=== PATIENT | female | born 1960 | race Caucasian/White ===

== ENCOUNTER → 2016-10-24 | Outpatient (CLI) | payer BC ==
[~2016-10-24] MED LIST: ADVIN25050 INH; ALBU1AER9; CEPH500C PO; CRDCD120 PO; EFF50 PO; FURO80TA63 PO; HYDR-3785 PO; POTA-335 PO; PRED20TA PO; ROPI0.5T15 PO; SNG10 PO
--- NOTE | 2016-10-24 16:51 | DIAGNOSTIC IMAGING REPORT ---
SACRUM COCCYX MIN 2 VIEWS CLINICAL HISTORY: M54.40 back pain. COMPARISON STUDY: No previous studies for comparison. FINDINGS: Degenerative changes are present within the lower lumbar spine. There are degenerative changes within the SI joints. There is no evidence of SI joint fusion. There is no conventional radiographic evidence of an inflammatory sacroiliitis. No fractures are visualized. IMPRESSION: Moderate degenerative changes in the lower lumbar spine. No acute fractures identified. Electronically signed by: Donny Shields M.D. 10/24/2016 4:49 PM Dictated Date/Time: 10/24/2016 4:48 PM
--- NOTE | 2016-10-24 16:57 | DIAGNOSTIC IMAGING REPORT ---
L-SPINE MIN 4 VIEWS ROUTINE CLINICAL HISTORY: M54.40 back pain and sciatica COMPARISON STUDY: No previous studies for comparison. FINDINGS: No acute fractures or subluxations are visualized. There are moderately advanced degenerative changes the L5-S1 level with disc space narrowing and osteophyte formation. Moderate degenerative changes are also present within the lower thoracic spine. IMPRESSION: 1. No acute fractures 2. Advanced degenerative changes at the L5-S1 level. Electronically signed by: Donny Shields M.D. 10/24/2016 4:56 PM Dictated Date/Time: 10/24/2016 4:55 PM
== END | disposition home or self-care (01) ==
LOC: C.RAD 15:31
PROVIDERS: ATTEND Family Medicine
DX: M54.40 Lumbago with sciatica, unspecified side (principal)

== ENCOUNTER → 2017-05-03 | Outpatient (CLI) | payer BC ==
--- NOTE | 2017-05-04 05:58 | PAP/PSG TECHNICIAN REPORT ---
[facility] Aurist Polysomnogram Report Study name: None Report date: 05/04/2017 Study date: 05/03/2017 Referring Physician: Kristopher Khanna MD Name: ISMAEL MOODY Interpreting Physician: Collins Umanzor D.O. Date of : 1960 Aurist: Richie Cam RPS. Sex: Female Age: 56 StudyType: PSG PAP Weight: 457 lbs Height: 56 years, Height 5' 6" BMI: 73.75 Medications: PRO AIR HFA 108 90 BASE, ADVAIR DISKUS 250-50 MCG, ZOLPIDEM TARTRATE 10 MG, ROPINIROLE HCL 0.5 MG, DICLOFENAC SODIUM, DILTIAZEM HCL 120 MG, EFFEXOR XR 150 MG, ETODOLAC 400 MG, LASIX 80 MG, POTASSIUM CHLORIDE 20 MEQ, PROVENTIL HFA, ZANTAC 150 MG Patient History PATIENT HAS HISTORY OF SLEEP APNEA AND RESTLESS LEGS. SHE CURRENTLY WEARS CPAP AT [facility]CWP AND IS HERE OR AN UPDATE ON HER PRESSURE. ESS = 8 RM 7 Parameters Monitored NPSG: E1-M2, E2-M1, Fp1-M2, Fp2-M1, F3-M2, F4-M2, F4-M1, C3-M2, C4-M2, C4-M1, O1-M2, O2-M2, O2-M1, T3-M2, T4-M1, P3-M2, P4-M1, CHIN1, CHIN2, HR, EKG, Legs, PFLOW, SNOR, FLOW, CFLOW, Tidal Volume, THOR, ABDO, SpO2, PLTH, CPRESS, ETCO2 Wave, ETCO2, pH Sleep Architecture Sleep Stages Time at Lights Off 10:41:42 PM STAGES Time (min.) TST (%) Time at Lights On 5:26:42 AM Wake 70.0 -- Total Recording Time (TRT) 406.00 min. N1 22.0 7 Total Sleep Period (TSP) 380.5 min. N2 190.5 57 Total Sleep Time (TST) 335.0min. N3 46.0 14 Awake Time 70.0 min. REM 76.5 23 Wake after Sleep Onset 45.5 min. Sleep Efficiency (SE) 83 % Sleep Onset Latency (KIMBERLY) 24.5 min. Number of Stage 1 Shifts None Awakenings 21 Stage Changes 83 Number of REM periods 1 REM 76.5 23 REM Latency 144.5 min. NREM 258.5 77 Body Position Analysis Supine Right Left Side Prone Vertical Total Sleep Time (min.) 213.6 0.0 165.2 165.22 0.0 0.0 Total Sleep Time (%) 51% 0% 49% 49 0% N/A% Total Sleep Time REM (min.) 76.5 0.0 0.0 None 0.0 0.0 Total Sleep Time NREM (min.) 93.3 0.0 165.2 None 0.0 0.0 Intermittent Wake (min.) 43.8 0.0 26.2 None 0.0 0.0 Total Sleep Period (%) 50% None None None None None Arousals Myoclonus (PLM) * Events Count Index Events Count Index Spontaneous 48 9 Events Awake (PLMW) 52 44.6 Respiratory 5 0.9 Events Asleep w/ Arousal (PLMA) 9 1.6 PLM 9 2 Events Asleep w/o Arousal (PLMS) 63 11.3 Snoring 4 1 Total Asleep 72 12.9 Total 66 12 Total 124 18 Respiratory Analysis * CA OA MA CH H RERA Total Count 0 0 0 0 23 1 23 Index 0.0 0.0 0.0 0 4.1 0 4.3 Mean Duration 0.0 0.0 0.0 0.00 12.6 11.4 12.5 Longest Duration 0.0 0.0 0.0 0.00 0.0 11.4 18.4 Respiratory Event Summary Total Supine ~Supine Right Left Prone REM NREM Apneas Count 0 0 0 N/A 0 N/A 0 0 Index 0.0 0 0 N/A 0.0 N/A 0 0 Hypopneas (4% Desat) Count 23 18 5 N/A 5 N/A 11 12 Index 4.1 6.4 2 N/A 1.8 N/A 8.6 2.8 Apneas & All Hypopneas Count 23 18 5 N/A 5 N/A 11 12 Index 4.1 6 2 N/A 2 N/A 8.6 2.8 Respiratory Events (Employee Wellness/Fitness Coordinator+All Hyp+RERA) Count 23 19 5 N/A 5 N/A 11 12 Index 4.3 7 2 N/A 1.8 N/A 8.6 3.0 Respiratory Related Arousal Count 5 19 2 N/A 2 N/A 0 5 Index 0.9 1 1 N/A 1 N/A 0 1 Snoring Analysis Supine Right Left Prone REM NREM Total Snore duration 2.0 min Snores count 25 N/A 104 N/A 5 124 129 Snore mean duration 0.9 Sec Snores index 9 N/A 38 N/A 3.9 28.8 23.1 TST with snoring (%) 0.6% Desaturation Event Summary: Minimum %SpO2 Event Count Mean/Min/Max Duration(sec.) Desaturation Index % Time In Bed > 90 38 18.6 / 6.0 / 55.0 6.6 85.3 86 - 90 5 15.9 / 8.3 / 24.9 5.5 13.6 81 - 85 1 6.3 / 6.3 / 6.3 14.2 1.0 76 - 80 0 N/A 0.0 0.0 71 - 75 0 N/A 0.0 0.0 66 - 70 0 N/A 0.0 0.0 61 - 65 0 N/A 0.0 0.0 56 - 60 0 N/A 0.0 0.0 51 - 55 0 N/A 0.0 0.0 < 50 0 N/A 0.0 0.0 Total REM NREM Awake <50% 0.0 min. 0.0 min. 0.0 min. 0.0 min. 51 - 60% 0.0 min. 0.0 min. 0.0 min. 0.0 min. 61 - 70% 0.0 min. 0.0 min. 0.0 min. 0.0 min. 71 - 80% 0.0 min. 0.0 min. 0.0 min. 0.0 min. 81 - 90% 59.3 min. 18.6 min. 33.8 min. 6.9 min. 91 - 100% 345.1 min. 57.9 min. 224.7 min. 62.5 min. Average 92 91 92 93 Minimum SpO2 81 81 88 87 Desaturation Event Index 6.1 9.4 3.5 12.0 # Desat. Events below 89% 12 9 2 1 Time(%) with Saturation below 89% 2.3 2.1 0.1 0.1 Time(min.) with Saturation below 89% 9.2 8.4 0.3 0.5 Time (mins) REM (mins) NREM (mins) % of TST SpO2 Below 90% 24 12 N12 4.8 SpO2 Below 88% 3 0 0 2 Heart Rate Analysis Min (bpm) Max (bpm) Average (bpm) Awake 61 92 78 NREM 63 88 74 REM 60 84 68 Overall 60 88 73 Supplemental O2 Values Minimum O2 level: None Value Start Time End Time Aurist Comments Mrs. Moody slept in the letf and supine positions. PVC's noted. Leg movements noted. No bruxism noted. CPAP was initiated at +4 CMH2O and up-titrated to an optimal level of +13 CMH2O, which nearly eliminated all respiratory events and snoring. A Dyer and Payke; Eson 2 size small nasal mask was used during titration Mrs. Moody awoke to use the restroom 0 times during the night. Mrs. Moody stated I slept as well as I do when I am in my own bed. The final report will be interpreted and signed by a sleep physician. The completed physician report will then be placed in the patient medical record. Therapy Event: Therapy (cm H20) 4 7 8 9 10 12 13 Total Time at Pressure (min.) 1.2 56.4 46.7 36.5 34.9 18.9 210.4 TST at Pressure (min.) 0.0 25.6 41.2 35.0 28.9 18.9 185.4 # Periods 1 1 1 1 1 1 1 Sleep Onset (min.) N/A 23.3 0.0 0.0 0.0 0.0 0.0 REM Onset (min.) N/A N/A N/A N/A 28.2 0.0 0.0 Sleep Efficiency % 0 45 88 95 82 100 88 Wakefulness (%) 100.0 54.6 11.8 4.1 17.2 0.0 11.9 Wakefulness (min.) 1.2 30.8 5.5 1.5 6.0 0.0 25.0 NREM 1 (%) 0.0 11.5 2.1 0.0 5.7 0.0 5.9 NREM 1 (min.) 0.0 6.5 1.0 0.0 2.0 0.0 12.5 NREM 2 (%) 0.0 33.8 68.3 33.6 58.0 0.0 50.8 NREM 2 (min.) 0.0 19.1 31.9 12.3 20.2 0.0 107.0 NREM 3 (%) 0.0 0.0 17.7 62.3 0.0 0.0 7.1 NREM 3 (min.) 0.0 0.0 8.3 22.7 0.0 0.0 15.0 REM (%) 0.0 0.0 0.0 0.0 19.1 100.0 24.2 REM (min.) 0.0 0.0 0.0 0.0 6.6 18.9 50.9 # Arousals N/A 17 7 5 11 0 26 Arousal Index N/A 39.8 10.2 8.6 22.9 0.0 8.4 # Snore N/A 10 43 28 24 1 23 Snore Index N/A 23.4 62.6 48.0 49.9 3.2 7.4 AHI N/A 7.0 2.9 1.7 14.5 12.7 1.9 AHI Supine N/A 19.7 3.4 N/A 30.8 12.7 2.1 AHI Non-Supine N/A 3.1 2.6 1.7 0.0 N/A 1.7 NREM AHI N/A 7.0 2.9 1.7 2.7 N/A 2.2 REM AHI N/A N/A N/A N/A 54.2 12.7 1.2 RDI N/A 9.4 2.9 1.7 14.5 12.7 1.9 # Obstructive N/A 0 0 0 0 0 0 # Central Ap N/A 0 0 0 0 0 0 # Mixed N/A 0 0 0 0 0 0 # Hypopneas N/A 3 2 1 7 4 6 RERAS N/A 1 0 0 0 0 0 Total Respiratory Events N/A 4 2 1 7 4 6 Time Below SpO2 89.00% (min.) 0.0 0.0 0.1 0.1 4.5 3.8 0.2 Mean NREM SpO2 (%) N/A 92 91 91 91 N/A 93 Mean REM SpO2 (%) N/A N/A N/A N/A 87 90 92 Mean Sleep SpO2 (%) N/A 92 91 91 90 90 93 Min NREM SpO2 (%) N/A 89 88 88 89 N/A 88 Min REM SpO2 (%) N/A N/A N/A N/A 81 82 88 Position Supine (min.) 0.0 6.1 17.9 0.0 13.6 18.9 113.2 Position Non-supine (min.) 0.0 19.5 23.3 35.0 15.2 0.0 72.2 LM Index Sleep N/A 18.8 20.4 3.4 14.5 0.0 13.3 LM Index NREM N/A 18.8 20.4 3.4 18.9 N/A 18.3 LM Index REM N/A N/A N/A N/A 0.0 0.0 0.0 Mean Heart Rate (bpm) N/A 76 76 79 77 71 70 Min Heart Rate (bpm) N/A 71 69 71 68 63 60
--- NOTE | 2017-05-10 13:13 | Sleep Study ---
Sleep Study Report Date of Service: 05/03/2017 Sleep Study Report CLINICAL DATA: The patient is a 56-year-old female with a history of obstructive sleep apnea. She has been on CPAP for many years at 9 centimeters. The patient believes that she may need more pressure. She has been feeling like she is not getting enough air and is being suffocated. She has had a significant weight gain. Her BMI currently is 73.75. This was an in-lab CPAP retitration. Her Advance Sleepiness Scale score is 8. She also carries a history of restless leg syndrome and she is on ropinirole. SLEEP ARCHITECTURE: The sleep period time was 380.5 minutes. The total sleep time was 335 minutes. The sleep efficiency was mildly reduced at 83 percent. Sleep latency was 24.5 minutes. Wake after sleep onset was 45.5 minutes. The REM latency was prolonged to 144.5 minutes. There was only 1 REM. During the night. Sleep consisted of stage N1 7 percent, stage N2 57 percent, stage N3 14 percent, stage REM 23 percent. AROUSAL DATA: Patient had a total of 66 arousals including 48 spontaneous arousals, 5 respiratory arousals, 9 PLM arousals, and 4 snoring arousals. The arousal index was 12. PLM DATA: The patient had 72 periodic limb movements of sleep for a PLM index of 12.9. There were 9 arousals associated with limb movements for a PLM arousal index of 1.6. EKG: The underlying cardiac rhythm was normal sinus. The cardiac rates 60-88 beats per minute. There were a mild number of PVCs noted. RESPIRATORY DATA: The patient's respiratory events were treated with nasal CPAP. She had a total of 23 respiratory events, all hypopneas. Hypopneas were scored according to the 4 percent desaturation rule. There was also 1 RERAs. The mean duration of the hypopneas was 12.6 seconds. The apnea-hypopnea index was 4.1 events per hour. At the final pressure of 13 centimeters the apnea-hypopnea index was only 1.9 events per hour. She was at that pressure for a total of 210.4 minutes. OXIMETRY DATA: The average saturation for the night was 92 percent. The minimum saturation was 81 percent. There was a total of 9.2 minutes with saturations less than 89 percent. SPECIAL AGENT SECRET SERVICE COMMENTS: The patient slept on the left and supine positions. PVCs noted. Leg movements noted. No bruxism noted. CPAP was initiated at 4 centimeters and up titrated to an optimal level of 13 centimeters which nearly eliminated all respiratory events and snoring. A Dyer and Paykel Eson 2 size small nasal mask was utilized. IMPRESSIONS: 1. Obstructive sleep apnea-resolved with nasal CPAP at 13 centimeters 2. Restless legs syndrome by history COMMENTS: Patient did well with her CPAP titration. This was especially true in the 2nd half of the night when her pressures were near the optimum. In the post sleep questionnaire she admitted that she slept better as the night went on. Her sleep efficiency was mildly reduced. She only had 1 REM episode. She does take venlafaxine which can suppress REM sleep. She does take ropinirole which was presumably utilized on the night of this study. She has a history of taking zolpidem. It is unknown with certainty if she took that medicine on the night of the study. RECOMMENDATIONS: 1. It is suggested that her nasal CPAP be adjusted upward to 13 centimeters 2. She did well during this study wearing a Dyer and Paykel Eson 2 size small nasal mask. This could be ordered for her if desired. 3. Weight loss is advised in light of the severe elevation of body mass index at 73.75. Copies To 1: Toni Gonzalez M.D.; Collins Umanzor DO; Kristopher Khanna MD
== END | disposition home or self-care (01) ==
LOC: C.NEUR 20:00
PROVIDERS: ATTEND Internal Medicine Critical Care Medicine
DX: G47.33 Obstructive sleep apnea (adult) (pediatric) (principal); R06.02 Shortness of breath

== ENCOUNTER 2017-11-01 18:26 | Emergency (ER) | payer BC ==
[~2017-11-01 18:26] MED LIST changes: -CEPH500C PO; -CRDCD120 PO; +DICL50TA3 PO; +DILT360C17 PO; -EFF50 PO; +ETOD400T PO; +FRS/40 PO; -FURO80TA63 PO; -HYDR-3785 PO; -PRED20TA PO; +RANI300T2 PO; -SNG10 PO; +VENL150C2 PO; +VENL75CA88 PO; +ZOLP10TA PO
[2017-11-01 18:30] VITALS: TEMP 36.6; Ht 167.6 cm
[2017-11-01] MEDS ORDERED: ACETAMINOPHEN 500 MG TAB PO STA (18:44)
[2017-11-01] MEDS ORDERED: KETOROLAC TROMETHAMINE 30 MG/ML VIAL IV STA (18:44)
--- NOTE | 2017-11-01 18:49 | EMERGENCY ROOM VISIT NOTE ---
History Report prepared by Mary: Ronel Huber Under the Supervision of: Dr. Rubén Hatch M.D. 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 Negative nausea, vomiting. She states she went to the doctor about 1 month ago and they recommended she have an ultrasound done as there was a concern for blood clots. She then began being treated for cellulitis and after the 1st round of 10 day antibiotics, she felt a little better. 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 She states she stopped taking it because her pain is now constant and she can no longer walk. She describes her pain as if the "backs of her knees are torn." Pt reports that nothing modifies her pain. 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 A total of ten systems were reviewed and were otherwise negative. Past Medical & Surgical Medical Problems: (1) Anxiety (2) Asthma (3) Bilateral primary osteoarthritis of knee (4) Depression (5) Hypertension (6) Obesity (7) ORIF left forearm (8) Restless leg syndrome (9) Sleep apnea Surgical Problems: (1) History of adenoidectomy (2) Hx of tonsillectomy (3) Previous section Family History Cancer FH: diabetes mellitus Heart disease High blood pressure Social History Smoking Status: Never Smoker Alcohol Use: none Marital Status: Housing Status: lives with family Occupation Status: disabled Current/Historical Medications Scheduled Diltiazem Hcl Coated Beads (Cardizem Cd), 360 MG PO DAILY Fluticasone Prop/Salmeterol (Advair Diskus 250/50 60 Dose), 1 PUFF INH BID Furosemide (Lasix), 40 MG PO HOLD Potassium Chloride Microencaps (Potassium Chloride Er), 20 MEQ PO HOLD Ranitidine (Zantac), 300 MG PO BID Ropinirole (Requip), 0.5 MG PO HS Venlafaxine Hcl (Effexor Xr), 75 MG PO DAILY Venlafaxine Hcl (Effexor Xr), 300 MG PO DAILY Scheduled PRN Acetaminophen (Tylenol), 1,500 MG PO UD PRN for Pain Albuterol Sulfate (Proair Respiclick), 2 PUFFS INH UD PRN for SOB/Wheezing Diclofenac (Voltaren), 50 MG PO QID PRN for Pain Etodolac (Etodolac), 400 MG PO TID PRN for Pain Oxycodone Immediate Rel Tab (Roxicodone Ir), 5 MG PO Q6H PRN for Pain Allergies Coded Allergies: No Known Allergies (Verified , 12/27/11) Physical Exam Vital Signs Date Time Temp Pulse Resp B/P (MAP) Pulse Ox O2 Delivery O2 Flow Rate FiO2 11/01/17 18:30 36.6 85 20 176/78 97 Room Air Physical Exam GENERAL: Awake, alert, well-appearing, NAD. Morbidly obese. HENT: Normocephalic, atraumatic. EYES: Normal conjunctiva. Sclera non-icteric. PERRL. No anisocoria. NECK: Supple. No nuchal rigidity. FROM. RESPIRATORY: CTAB, no rhonchi, wheezing, crackles CARDIAC: RRR. Systolic ejection murmur. ABDOMEN: Soft, NTND, BS+ MSK: No chest wall TTP. Nonpitting LE edema. No evidence of any skin breakdown. Scant erythema but no calor. No fluctuance or purulence. DP pulses palpable NEURO: GCS 15, CN 2-12 intact, moves all 4s on command SKIN: No rash or jaundice noted. Medical Decision & Procedures Laboratory Results 11/01/17 19:14 Red Blood Count 4.22, Mean Corpuscular Volume 92.7, Mean Corpuscular Hemoglobin 29.6, Mean Corpuscular Hemoglobin Concent 32.0, Mean Platelet Volume 9.7, Neutrophils (%) (Auto) 77.2, Lymphocytes (%) (Auto) 15.3, Monocytes (%) (Auto) 6.0, Eosinophils (%) (Auto) 1.1, Basophils (%) (Auto) 0.2, Neutrophils # (Auto) 7.34, Lymphocytes # (Auto) 1.45, Monocytes # (Auto) 0.57, Eosinophils # (Auto) 0.10, Basophils # (Auto) 0.02 11/01/17 19:14 Test 11/01/17 19:14 White Blood Count 9.50 K/uL (4.8-10.8) Red Blood Count 4.22 M/uL (4.2-5.4) Hemoglobin 12.5 g/dL (12.0-16.0) Hematocrit 39.1 % (37-47) Mean Corpuscular Volume 92.7 fL (80-100) Mean Corpuscular Hemoglobin 29.6 pg (25-34) Mean Corpuscular Hemoglobin Concent 32.0 g/dl (32-36) Platelet Count 246 K/uL (130-400) Mean Platelet Volume 9.7 fL (7.4-10.4) Neutrophils (%) (Auto) 77.2 % Lymphocytes (%) (Auto) 15.3 % Monocytes (%) (Auto) 6.0 % Eosinophils (%) (Auto) 1.1 % Basophils (%) (Auto) 0.2 % Neutrophils # (Auto) 7.34 K/uL (1.4-6.5) Lymphocytes # (Auto) 1.45 K/uL (1.2-3.4) Monocytes # (Auto) 0.57 K/uL (0.11-0.59) Eosinophils # (Auto) 0.10 K/uL (0-0.5) Basophils # (Auto) 0.02 K/uL (0-0.2) RDW Standard Deviation 51.2 fL (36.4-46.3) RDW Coefficient of Variation 15.1 % (11.5-14.5) Immature Granulocyte % (Auto) 0.2 % Immature Granulocyte # (Auto) 0.02 K/uL (0.00-0.02) Anion Gap 9.0 mmol/L (3-11) Estimated GFR () 73.7 Estimated GFR (Non- 63.6 BUN/Creatinine Ratio 13.0 (10-20) Calcium Level 8.6 mg/dl (8.5-10.1) Total Bilirubin 0.4 mg/dl (0.2-1) Direct Bilirubin < 0.1 mg/dl (0-0.2) Aspartate Amino Transf (AST/SGOT) 12 U/L (15-37) Alanine Aminotransferase (ALT/SGPT) 21 U/L (12-78) Alkaline Phosphatase 114 U/L (45-117) Pro-B-Type Natriuretic Peptide 202 pg/ml (0-900) Total Protein 7.5 gm/dl (6.4-8.2) Albumin 3.3 gm/dl (3.4-5.0) Lipase 92 U/L (73-393) Laboratory results reviewed by me Medications Administered Medications (Trade) Dose Ordered Sig/Estelle Route Start Time Stop Time Status Last Admin Dose Admin Ketorolac Tromethamine (Toradol Inj) 30 mg NOW STAT IV 11/01/17 18:44 11/01/17 18:46 DC 11/01/17 19:22 30 MG Acetaminophen (Tylenol Tab) 1,000 mg NOW STAT PO 11/01/17 18:44 11/01/17 18:46 DC 11/01/17 19:22 1,000 MG ED Course 1837: The patient was evaluated in room B5. A complete history and physical exam was performed. 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 Negative nausea, vomiting. Nursing notes reviewed. Ancillary studies and prior records reviewed. Differential diagnosis: Etiologies such as cellulitis, abscess, MRSA infection, DVT, necrotizing fasciitis, dermatitis, drug eruption, as well as others were entertained.. Patient was seen and evaluated the bedside. The patient was complaining of bilateral leg pain. The patient has been seen by her primary care physician several times been treated for cellulitis and did have bilateral lower extremity DVT ultrasound which of note the patient is morbidly obese and the patient does have some lymphedema. The patient states that she has been tried on Tylenol threes as well as baclofen without much relief. Upon observation the patient does have mild erythema but this may just be due to the stretching of the skin. It is fairly nonpitting. The patient is not tachypneic nor tachycardic. Patient has clear lung sounds. I believe volume overload or heart failure to be less likely. Given the recent DVT ultrasounds and without any acute changes DVT ultrasounds cannot be obtained again. The patient has no change in temperature with regard to each extremity and the patient appears to be perfusing the bilateral lower extremities well. I do not believe that the patient has limb ischemia. Patient did have blood work completed. The patient's BNP is not elevated. The patient has a normal white blood cell count. Somewhat may be muddied as the patient has been on antibiotics in the past however again the appearance does not appear cellulitic and laxity warmth. I do believe that this is lymphedema. I did make a referral to the wound care and lymphedema clinic. Patient was feeling improved. Patient does not have any back pain saddle anesthesia or neuro deficits. Less likely cauda equina. Patient was told to continue her therapy. Patient was given a very small amount of narcotic medication. I did this only as the patient stated that tramadol she is tried in the past and is not worked very well for pain control. I did have a prolonged discussion about narcotic medication stated this may be habit-forming cause respiratory depression as well as other problems including respiratory arrest and/or addiction. She was told to follow-up with pain management who she already sees. Of note the patient to see pain management patient was told to follow-up with pain management. Patient was given strict follow-up, discharge, and return precautions. All questions were answered. Patient was deemed suitable for outpatient follow-up at this time. Patient agreed with the plan of care and was safely discharged home. Medication Reconcilliation Current Medication List: was personally reviewed by me Blood Pressure Screening Patient's blood pressure: Elevated blood pressure Blood pressure disposition: Referred to PCP Impression Primary Impression: Bilateral leg pain Additional Impression: Lymphedema of both lower extremities Scribe Attestation The scribe's documentation has been prepared under my direction and personally reviewed by me in its entirety. I confirm that the note above accurately reflects all work, treatment, procedures, and medical decision making performed by me. Departure Information Dispostion Home / Self-Care Prescriptions Oxycodone Immediate Rel Tab (ROXICODONE IR) 5 Mg Tab 5 MG PO Q6H Y for Pain, #12 TAB Prov: Rubén Hatch M.D. 11/01/17 Referrals Toni Gonzalez M.D. (PCP) Patient Instructions ED Lymphedema, [facility] Additional Instructions Please return to the emergency department if you have worsening or recurrent symptoms not amenable to at-home treatment. Please call for a follow-up appointment with her primary care physician. Please take your medications as prescribed. If you have other concerns and/or complaints please feel free to also call your primary care physician's office or return the ED for further evaluation, management, and treatment. You may take 600 mg Ibuprofen every 6 hours as needed for pain/fever with food unless told by your physician not to take NSAIDs. You may take tylenol 650 mg every 6 hours as needed for pain/fever unless told by your physician to not take it or have liver problems. You may take motrin and tylenol separately or at the same time. If you still have discomfort you may take the narcotic medication. Please be advised that these medications are habit forming, can make you sleepy, and can cause breathing issues. Do not use if you require your full attention. Take only as prescribed. Take your medications as prescribed. Please follow-up with pain management and your PCP for any worsening symptoms. Please keep the referral for the lymphedema clinic. You have been examined and treated today on an emergency basis only. This is not a substitute for, or an effort to provide, complete comprehensive medical care. It is impossible to recognize and treat all injuries or illnesses in a single emergency department visit. It is therefore important that you follow up closely with [facility], your PCP, and/or your specialist(s). Call as soon as possible for an appointment. Thank you for your time and consideration. I look forward to speaking with you again soon. Please don't hesitate to call us if you have any questions. Problem Qualifiers
[2017-11-01] MEDS ORDERED: ADVIN25/60 INH (19:06)
[2017-11-01] MEDS ORDERED: POTA20TA13 PO (19:06)
[2017-11-01] MEDS ORDERED: ALBU18002 INH (19:06)
[2017-11-01] MEDS ORDERED: ACET-1256 PO (19:09)
[2017-11-01 19:23] LABS: BASO % 0.2 %; BASO ABS # 0.02 K/uL (0-0.2); EOS % 1.1 %; HEMATOCRIT 39.1 % (37-47); HEMOGLOBIN 12.5 g/dL (12.0-16.0); IG# 0.02 K/uL (0.00-0.02); LYMPH % 15.3 %; LYMPH ABS # 1.45 K/uL (1.2-3.4); MEAN CELL VOLUME 92.7 fL (80-100); MEAN CORPUSCULAR HEMOGLOBIN 29.6 pg (25-34); MEAN PLATELET VOLUME 9.7 fL (7.4-10.4); MONO ABS # 0.57 K/uL (0.11-0.59); NEUT % 77.2 %; NEUT ABS # 7.34 K/uL (1.4-6.5); PLATELET COUNT 246 K/uL (130-400); RED CELL DISTRIBUTION WIDTH CV 15.1 % (11.5-14.5); RED CELL DISTRIBUTION WIDTH SD 51.2 fL (36.4-46.3)
[2017-11-01 19:48] LABS: ALBUMIN 3.3 gm/dl (3.4-5.0); ALKALINE PHOSPHATASE 114 U/L (45-117); ALT/SGPT 21 U/L (12-78); AST/SGOT 12 U/L (15-37); BLOOD UREA NITROGEN 13 mg/dl (7-18); CALCIUM 8.6 mg/dl (8.5-10.1); CARBON DIOXIDE 24 mmol/L (21-32); CREATININE 0.98 mg/dl (0.60-1.20); GLUCOSE 121 mg/dl (70-99); LIPASE 92 U/L (73-393); POTASSIUM 3.6 mmol/L (3.5-5.1); SODIUM 139 mmol/L (136-145); TOTAL PROTEIN 7.5 gm/dl (6.4-8.2)
[2017-11-01] MEDS ORDERED: OXYC-737 PO (20:08)
[2017-11-01 21:12] VITALS: BP 186/88; PULSE 74; O2SAT 99
== END 2017-11-01 21:14 | disposition home or self-care (01) ==
LOC: C.EDB 18:27
DX: M79.661 Pain in right lower leg (principal); M79.662 Pain in left lower leg; I89.0 Lymphedema, not elsewhere classified; I10 Essential (primary) hypertension; J45.909 Unspecified asthma, uncomplicated; F41.9 Anxiety disorder, unspecified; F32.9 Major depressive disorder, single episode, unspecified; Z79.899 Other long term (current) drug therapy; Z79.51 Long term (current) use of inhaled steroids

== ENCOUNTER → 2017-11-12 | Outpatient (CLI) | payer BC ==
[~2017-11-12] MED LIST changes: +ACET-1256 PO; +ADVIN25/60 INH; -ADVIN25050 INH; +ALBU18002 INH; -ALBU1AER9; +OXYC-737 PO; -POTA-335 PO; +POTA20TA13 PO; -ZOLP10TA PO
== END | disposition home or self-care (01) ==
LOC: C.RDSM 11:36
PROVIDERS: ATTEND Orthopaedic Surgery Sports Medicine
DX: M25.562 Pain in left knee (principal); M25.561 Pain in right knee

== ENCOUNTER 2021-07-24 09:36 | Observation (INO) ==
[2021-07-24] MEDS ORDERED: MoRPHine SULFATE 4 MG/ML 1 ML CARP\\VIAL IV STA (09:57)
--- NOTE | 2021-07-24 10:04 | Emergency Department Note ---
Impression & Plan Tibial fracture, Contusion of left forearm, Fall ED Provider Note Provider: Bobby Bell MD DATE OF SERVICE: 07/24/2021 CHIEF COMPLAINT: Right leg pain, fall HISTORY OF PRESENT ILLNESS: Patient is a 61-year-old female past medical history including osteoarthritis, hypertension, obesity, and asthma presenting here today via ambulance from her home. Patient states over the past 2 to 3 days she has developed pain in her right lower leg. Pain predominantly between the knee and the ankle and the right side sometimes on the right of the leg and sometimes on the left of this right leg. Denies any left lower extremity issues. Patient states that been painful to even try to walk on but denies significant pain of the thigh or right hip. Patient states she has been using her home diclofenac without improvement. Discussed with her PCP yesterday recommended she come to the ER for evaluation of possible DVT. Patient states she could not walk to her 's car and thus did not come yesterday. Today was at home and a rolling computer chair when she was trying to stand a little bit to roll the chair over a transition on the floor when she fell onto her buttocks and back and bumped her left arm on the walker. Some slight bruising of the left arm but denies severe pain in the wrist or hand otherwise here. Denies striking her head or headache. Denies significant difficulty breathing or URI symptoms but states she may have had a fever yesterday. History of some cellulitis in the left leg previously but no history of infection of the right leg. Patient denies a history of surgery in the right leg. REVIEW OF SYSTEMS: A total of 10 review of systems was obtained and negative except as stated above in the HPI. PAST MEDICAL HISTORY: As noted above MEDICATIONS: Reviewed home medications SOCIAL HISTORY: Lives at home with PHYSICAL EXAM: GENERAL: alert and oriented in no acute distress on stretcher Head: normocephalic and atraumatic EYES: No injection, discharge or icterus. NECK: Trachea midline. ENT: Mucous membranes pink and moist. LUNGS: Airway patent. No retractions. Breath sounds present bilaterally but slightly distant HEART: Regular rate and rhythm. No chest wall tenderness ABDOMEN: Soft, obese, and non-tender, without guarding or rebound. SKIN: Acyanotic, warm, dry and otherwise as below EXTREMITIES: Patient was chronic dry scaly flaking venous changes to the bilateral lower legs with mild swelling of the right lower leg and slight erythema just distal to the knee. No obvious acute deformities. No open wounds appreciated. No significant tenderness or crepitus appreciated with exception to the right posterior calf with has some tenderness diffusely. NEUROLOGICAL: No focal deficits. No aphasia. No facial droop or slurred speech. Normal strength and tone in the extremities. Sensation to gross touch normal. Ambulatory. EK bpm normal sinus rhythm. No PVC or PAC. No acute ST segment elevation or depression with a QTC of 421. PROCEDURE: splint placement Indications for procedure: Right proximal tibial fracture Description of the procedure: Long posterior orthoglass splint was placed on the patient's right lower extremity as best as able given the patient's habitus. Neurovascular status was intact after placement of the splint. PATIENT CONDITION AFTER PROCEDURE: Patient tolerated the procedure without significant discomfort or complication noted PDMP was checked without noted issue. Patient's laboratory studies and imaging reviewed. Differential includes Cellulitis, abscess, MRSA infection, DVT, necrotizing fasciitis, dermatitis, drug eruption, allergic reaction, PAD, trauma, fracture, dislocation, viral syndrome, as well as other pathologies. IMPRESSION/MEDICAL DECISION MAKING: Patient with some right lower leg pain precipitating a fall today. Slight bruise on the distal left forearm but not involving the wrist although x-rays were obtained in this area. She denies strike her head is not on anticoagulants. Ultrasound of the right lower extremities was obtained to exclude DVT. Question some swelling here and possible cellulitis. No large open wounds appreciated. No significant leukocytosis noted. X-ray of the left upper arm without acute fracture or dislocation noted. X-rays of the chest without acute trauma although may be some slight pulmonary edema. X-ray of the right lower leg does show evidence of a proximal tibial fracture. Patient is again unclear that she suffered any trauma of the fall today and the pain was not significantly different after the fall. Given her weight wonder if this is related to this. Ultrasound without evidence of DVT. Lower suspicion for infection given the fracture finding. Put in a posterior splint as able given habitus for immobilization. Patient is not felt to be able to tolerate crutches and fell while try to utilize a walker today and I do not feel she is able to go home at this time. Asked the hospitalist to evaluate as she may need possible placement. DIAGNOSIS: Right tibia fracture DISPOSITION: Hospitalist will evaluate Patient was agreeable with this plan. Past Med/Surg History Medical History Asthma Cough History of basal cell carcinoma History of dysplastic nevus Morbid obesity Obstructive sleep apnea Restless leg syndrome Sleep apnea SOB (shortness of breath) Surgical History H/O tubal ligation History of adenoidectomy Hx of tonsillectomy Hx of tonsillectomy Previous section S/P section S/P dilation and curettage S/P wisdom tooth extraction Family History Denies family history of Ovarian cancer Breast cancer Colorectal cancer Uterine cancer Social History Smoking Status: Never smoker Hx Alcohol Use: No Hx Substance Use: No Feels Safe at Home: Yes Allergies Allergies Allergy/AdvReac Type Severity Reaction Status Date / Time No Known Allergies Allergy Unknown Verified 04/12/19 15:26 Home Meds Home Medications Medication Instructions Recorded Confirmed albuterol sulfate 90 mcg/actuation 2 puffs INH Q6H PRN 11/23/18 07/24/21 aerosol inhaler (ProAir HFA) duloxetine 60 mg capsule,delayed 60 mg PO DAILY 11/23/18 07/24/21 release (Cymbalta) diltiazem HCl 120 mg 360 mg PO DAILY cap 12/06/18 07/24/21 capsule,extended release 12 hr lisinopril 10 mg tablet 10 mg PO DAILY 03/10/19 07/24/21 diclofenac sodium 75 mg 75 mg PO TID PRN 07/24/21 07/24/21 tablet,delayed release omeprazole 20 mg capsule,delayed 20 mg PO BID 07/24/21 07/24/21 release oxybutynin chloride 10 mg 10 mg PO DAILY 07/24/21 07/24/21 tablet,extended release 24 hr ropinirole 0.5 mg tablet 1 mg PO HS 07/24/21 07/24/21 Previous Rx's Medication Instructions Recorded CPAP Supplies #1 ea 04/12/19 fluticasone 250 mcg-salmeterol 50 1 puffs INH Q12H #60 ea 04/12/19 mcg/dose blistr powdr for inhalation (Wixela Inhub) montelukast 10 mg tablet 10 mg PO QPM #30 tab 08/31/19 (Singulair) Results & Data (ED) Vital Signs Vital Signs - 24 hr 07/24/21 09:50 07/24/21 10:13 07/24/21 11:49 Temperature 36.7 C Temperature Source Oral Pulse Rate 80 Pulse Rate [Apical] 87 Pulse Rhythm [Apical] Respiratory Rate 18 18 Respiratory Effort / Characteristics Respiratory Depth Blood Pressure 206/71 H Blood Pressure [Left Arm] 194/85 H Blood Pressure Mean 116 Blood Pressure Mean [Left Arm] 121 Pulse Oximetry 97 96 96 Oxygen Delivery Method Room Air Room Air Room Air Sepsis Recent Fever Within 48 Hours No Sepsis New/Unexplained Change in Mental Status No Sepsis Action Taken by Nursing No Action Required 07/24/21 13:00 07/24/21 15:00 Temperature Temperature Source Pulse Rate Pulse Rate [Apical] 80 73 Pulse Rhythm [Apical] Regular Respiratory Rate 16 16 Respiratory Effort / Characteristics Non-Labored Spontaneous Respiratory Depth Normal Blood Pressure Blood Pressure [Left Arm] 194/85 H 186/65 H Blood Pressure Mean Blood Pressure Mean [Left Arm] 121 105 Pulse Oximetry 99 96 Oxygen Delivery Method Room Air Room Air Sepsis Recent Fever Within 48 Hours Sepsis New/Unexplained Change in Mental Status Sepsis Action Taken by Nursing Laboratory Data Result diagrams: 07/24/21 10:25 07/24/21 10:25 Lab Results 07/24/21 07/24/21 07/24/21 Range/Units 10:25 10:25 10:25 WBC 7.62 (4.8-10.8) K/uL RBC 3.97 L (4.2-5.4) M/uL Hgb 11.0 L (12.0-16.0) g/dL Hct 35.4 L (37-47) % MCV 89.2 (80-100) fL MCH 27.7 (25-34) pg MCHC 31.1 L (32-36) g/dL RDW Std Deviation 48.2 H (36.4-46.3) fL RDW Coeff of Aleida 14.7 H (11.5-14.5) % Plt Count 195 (130-400) K/uL MPV 9.7 (7.4-10.4) fL Immature Gran % (Auto) 0.4 % Neut % (Auto) 78.6 % Lymph % (Auto) 10.2 % [place] % (Auto) 7.9 % Eos % (Auto) 2.5 % Baso % (Auto) 0.4 % Neut # (Auto) 5.99 (1.4-6.5) K/uL Lymph # (Auto) 0.78 L (1.2-3.4) K/uL [place] # (Auto) 0.60 H (0.11-0.59) K/uL Eos # (Auto) 0.19 (0-0.5) K/uL Baso # (Auto) 0.03 (0-0.2) K/uL Immature Gran # (Auto) 0.03 H (0.00-0.02) K/uL PT 10.7 (9.0-12.0) Seconds INR 1.0 (0.9-1.1) Sodium 140 (136-145) mmol/L Potassium 4.8 (3.5-5.1) mmol/L Chloride 106 (98-107) mmol/L Carbon Dioxide 26 (21-32) mmol/L Anion Gap 8 (3-11) BUN 17 (6-23) mg/dl Creatinine 1.12 (0.6-1.2) mg/dl Est Cr Clr Drug Dosing 98.0 ml/min Est GFR ( Amer) 61.0 ml/min Est GFR (Non-Af Amer) 52.6 ml/min BUN/Creatinine Ratio 15.2 (10-20) Glucose 114 H (70-99(Fasting)) mg/dl Calcium 9.3 (8.5-10.1) mg/dl Total Bilirubin 1.0 (0.2-1.0) mg/dl AST 13 (13-39) U/L ALT 11 (7-52) U/L Alkaline Phosphatase 109 H (34-104) U/L Troponin I High Sens 12.4 (0-14) pg/ml Total Protein 7.1 (6.0-8.3) gm/dl Albumin 3.9 (3.4-5.0) gm/dl Globulin 3.2 (2.5-4.0) gm/dl Albumin/Globulin Ratio 1.2 (0.9-2) SARS-CoV-2, RNA, NAAT (NEGATIVE) 07/24/21 Range/Units 12:49 WBC (4.8-10.8) K/uL RBC (4.2-5.4) M/uL Hgb (12.0-16.0) g/dL Hct (37-47) % MCV (80-100) fL MCH (25-34) pg MCHC (32-36) g/dL RDW Std Deviation (36.4-46.3) fL RDW Coeff of Aleida (11.5-14.5) % Plt Count (130-400) K/uL MPV (7.4-10.4) fL Immature Gran % (Auto) % Neut % (Auto) % Lymph % (Auto) % Wood[place] % (Auto) % Eos % (Auto) % Baso % (Auto) % Neut # (Auto) (1.4-6.5) K/uL Lymph # (Auto) (1.2-3.4) K/uL Woodford # (Auto) (0.11-0.59) K/uL Eos # (Auto) (0-0.5) K/uL Baso # (Auto) (0-0.2) K/uL Immature Gran # (Auto) (0.00-0.02) K/uL PT (9.0-12.0) Seconds INR (0.9-1.1) Sodium (136-145) mmol/L Potassium (3.5-5.1) mmol/L Chloride (98-107) mmol/L Carbon Dioxide (21-32) mmol/L Anion Gap (3-11) BUN (6-23) mg/dl Creatinine (0.6-1.2) mg/dl Est Cr Clr Drug Dosing ml/min Est GFR ( Amer) ml/min Est GFR (Non-Af Amer) ml/min BUN/Creatinine Ratio (10-20) Glucose (70-99(Fasting)) mg/dl Calcium (8.5-10.1) mg/dl Total Bilirubin (0.2-1.0) mg/dl AST (13-39) U/L ALT (7-52) U/L Alkaline Phosphatase (34-104) U/L Troponin I High Sens (0-14) pg/ml Total Protein (6.0-8.3) gm/dl Albumin (3.4-5.0) gm/dl Globulin (2.5-4.0) gm/dl Albumin/Globulin Ratio (0.9-2) SARS-CoV-2, RNA, NAAT NEGATIVE (NEGATIVE) Administered Medications Discontinued Medications Diltiazem HCl (Diltiazem Hcl 180 Mg Capcr) 360 mg PO NOW STA Stop: 07/24/21 13:24 Last Admin: 07/24/21 13:57 Dose: 360 mg Documented by: [id number] Morphine Sulfate (Morphine Sulfate 4 Mg/Ml 1 Ml Carp\Vial) 4 mg IV NOW STA Stop: 07/24/21 09:58 Last Admin: 07/24/21 10:28 Dose: 4 mg Documented by: [id number] Imaging Data Radiologist's Impression: Chest X-Ray 07/24/21 09:56 XR chest 1V portable HISTORY: fall COMPARISON: Chest 09/13/2018. FINDINGS: The cardiac silhouette is moderately enlarged. This is progressed in the interval. No pneumothorax. No pleural effusions. There is mild central pulmonary vascular congestion without overt edema. No focal lung consolidations to suggest pneumonia. No acute rib fractures identified. IMPRESSION: 1. Moderate enlargement of cardiac silhouette which has progressed in the interval. 2. There is mild central pulmonary vascular congestion without overt edema. ACT 112: Negative or not required by law. Electronically signed by: James Silva M.D. 07/24/2021 10:23 AM Forearm X-Ray 07/24/21 09:56 XR forearm LT 2V CLINICAL HISTORY: fall, distal swelling COMPARISON: None FINDINGS: Distal left radial plate and screw fixation is noted. There is a healed distal left radial fracture. No acute fracture of the left radius or ulna is identified. Note is made of a alignment of the left elbow is anatomic. There is no evidence for a left elbow joint effusion. Distal left forearm soft tissue swelling. IMPRESSION: 1. No acute fracture within the left radius or ulna. 2. Healed distal left radial fracture status post internal fixation. 3. Dorsal distal left forearm soft tissue swelling. ACT 112: Negative or not required by law. Electronically signed by: Neeraj Hollingsworth M.D. 07/24/2021 10:23 AM Tibia/Fibula X-Ray 07/24/21 09:56 XR tibia fibula RT 2V HISTORY: 61 years-old Female pain acute pain of the right lower leg status post trauma COMPARISON: Right knee radiographs 11/12/2017 TECHNIQUE: 2 views of the right tibia and fibula FINDINGS: Severe osteoarthritis of the right knee with chronic subluxation. There is an acute mildly comminuted fracture involving the proximal tibial metaphysis and me tadiaphyseal junction which demonstrates 6 mm medial displacement. No additional acute fracture or dislocation is identified. The fibula appears intact. Marked soft tissue prominence with soft tissue calcifications. Osteoarthritis of the foot and ankle. IMPRESSION: Acute comminuted slightly displaced fracture of the proximal tibial metaphysis and metadiaphyseal junction. ACT 112: Negative or not required by law. The above report was generated using voice recognition software. It may contain grammatical, syntax or spelling errors. Electronically signed by: Albino Graf M.D. 07/24/2021 10:31 AM Venous Doppler Study 07/24/21 09:56 RIGHT LOWER EXTREMITY VENOUS DOPPLER CLINICAL HISTORY: Right lower extremity pain and swelling. COMPARISON STUDY: No previous studies for comparison. TECHNIQUE: Sonography of the deep venous system of the right lower extremity was performed. Compression and augmentation were evaluated. FINDINGS: The right common femoral, superficial femoral and popliteal veins were compressible. Augmentation was normal. Flow was shown within the deep calf vessels although evaluation was suboptimal due to lower extremity edema. IMPRESSION: No evidence of deep venous thrombus within the right lower extremity although evaluation of the calf vessels was suboptimal. ACT 112: Negative or not required by law. Electronically signed by: Neeraj Hollingsworth M.D. 07/24/2021 11:32 AM Discharge Plan Visit Data Chief Complaint: Fall Stated Complaint: R LEG PAIN ED Provider: Bobby Bell Discharge Problem: Tibial fracture, Contusion of left forearm, Fall Patient Disposition: Being Evaluated by Hospitalist Forms Stand Alone Forms: My [employer] Prescriptions Prescriptions: No Action montelukast [Singulair] 10 mg tablet 10 mg PO QPM Qty: 30 RF: 5 duloxetine [Cymbalta] 60 mg capsule,delayed release(DR/EC) 60 mg PO DAILY RF: 0 albuterol sulfate [ProAir HFA] 90 mcg/actuation HFA aerosol inhaler 2 puffs INH Q6H PRN (Reason: Other) RF: 0 diltiazem HCl 120 mg capsule,extended release 12 hr 360 mg PO DAILY RF: 0 lisinopril 10 mg tablet 10 mg PO DAILY RF: 0 fluticasone propion-salmeterol [Wixela Inhub] 250-50 mcg/dose blister with device 1 puffs INH Q12H Qty: 60 RF: 5 (DME) CPAP Supplies Misc See Rx Instructions .ROUTE .MEDSUPPLY Qty: 1 RF: 0 ropinirole 0.5 mg tablet 1 mg PO HS RF: 0 omeprazole 20 mg capsule,delayed release(DR/EC) 20 mg PO BID RF: 0 diclofenac sodium 75 mg tablet,delayed release (DR/EC) 75 mg PO TID PRN (Reason: other) RF: 0 oxybutynin chloride 10 mg tablet extended release 24 hr 10 mg PO DAILY RF: 0 Referrals Referrals: Toni Gonzalez MD [Primary Care Provider] -
--- NOTE | 2021-07-24 10:24 | XRay Report ---
XR forearm LT 2V CLINICAL HISTORY: fall, distal swelling COMPARISON: None FINDINGS: Distal left radial plate and screw fixation is noted. There is a healed distal left radial fracture. No acute fracture of the left radius or ulna is identified. Note is made of a alignment of the left elbow is anatomic. There is no evidence for a left elbow joint effusion. Distal left forear m soft tissue swelling. IMPRESSION: 1. No acute fracture within the left radius or ulna. 2. Healed distal left radial fracture status post internal fixation. 3. Dorsal distal left forearm soft tissue swelling. ACT 112: Negative or not required by law. Electronically signed by: Neeraj Hollingsworth M.D. 07/24/2021 10:23 AM
--- NOTE | 2021-07-24 10:25 | XRay Report ---
XR chest 1V portable HISTORY: fall COMPARISON: Chest 09/13/2018. FINDINGS: The cardiac silhouette is moderately enlarged. This is progressed in the interval. No pneum othorax. No pleural effusions. There is mild central pulmonary vascular congestion without overt thalia a. No focal lung consolidations to suggest pneumonia. No acute rib fractures identified. IMPRESSION: 1. Moderate enlargement of cardiac silhouette which has progressed in the interval. 2. There is mild central pulmonary vascular congestion without overt edema. ACT 112: Negative or not required by law. Electronically signed by: James Silva M.D. 07/24/2021 10:23 AM
--- NOTE | 2021-07-24 10:33 | XRay Report ---
XR tibia fibula RT 2V HISTORY: 61 years-old Female pain acute pain of the right lower leg status post trauma COMPARISON: Right knee radiographs 11/12/2017 TECHNIQUE: 2 views of the right tibia and fibula FINDINGS: Severe osteoarthritis of the right knee with chronic subluxation. There is an acute mildly comminuted fracture involving the proximal tibial metaphysis and metadiaphyseal junction which demonstrates 6 m m medial displacement. No additional acute fracture or dislocation is identified. The fibula appears intact. Marked soft tissue prominence with soft tissue calcifications. Osteoarthritis of the foot and ankle. IMPRESSION: Acute comminuted slightly displaced fracture of the proximal tibial metaphysis and metadi aphyseal junction. ACT 112: Negative or not required by law. The above report was generated using voice recognition software. It may contain grammatical, syntax o r spelling errors. Electronically signed by: Albino Graf M.D. 07/24/2021 10:31 AM
[2021-07-24 10:59] LABS: Prothrombin Time 10.7 Seconds (9.0-12.0)
[2021-07-24 11:00] LABS: Basophils # (auto) 0.03 K/uL (0-0.2); Basophils % (auto) 0.4 %; Eosinophils # (auto) 0.19 K/uL (0-0.5); Eosinophils % (auto) 2.5 %; Hematocrit (blood only) 35.4 % (37-47); Immature Granulocytes # (auto) 0.03 K/uL (0.00-0.02); Immature Granulocytes % (auto) 0.4 %; Lymphocytes # (auto) 0.78 K/uL (1.2-3.4); Lymphocytes % (auto) 10.2 %; Mean Corpuscular Hemoglobin 27.7 pg (25-34); Mean Corpuscular Hgb Conc 31.1 g/dL (32-36); Mean Corpuscular Volume 89.2 fL (80-100); Mean Platelet Volume 9.7 fL (7.4-10.4); Monocytes % (auto) 7.9 %; Neutrophils # (auto) 5.99 K/uL (1.4-6.5); Neutrophils % (auto) 78.6 %; Platelet Count 195 K/uL (130-400); RDW Coefficient of Variation 14.7 % (11.5-14.5); RDW Standard Deviation 48.2 fL (36.4-46.3); Red Blood Count 3.97 M/uL (4.2-5.4); White Blood Count 7.62 K/uL (4.8-10.8)
[2021-07-24 11:16] LABS: Troponin I High Sensitivity 12.4 pg/ml (0-14)
--- NOTE | 2021-07-24 11:34 | Ultrasound Report ---
RIGHT LOWER EXTREMITY VENOUS DOPPLER CLINICAL HISTORY: Right lower extremity pain and swelling. COMPARISON STUDY: No previous studies for comparison. TECHNIQUE: Sonography of the deep venous system of the right lower extremity was performed. Compress ion and augmentation were evaluated. FINDINGS: The right common femoral, superficial femoral and popliteal veins were compressible. Augme ntation was normal. Flow was shown within the deep calf vessels although evaluation was suboptimal du e to lower extremity edema. IMPRESSION: No evidence of deep venous thrombus within the right lower extremity although evaluation of the calf vessels was suboptimal. ACT 112: Negative or not required by law. Electronically signed by: Neeraj Hollingsworth M.D. 07/24/2021 11:32 AM
[2021-07-24 11:40] LABS: Albumin Globulin Ratio 1.2 (0.9-2); Albumin Level 3.9 gm/dl (3.4-5.0); BUN Creatinine Ratio 15.2 (10-20); Calcium 9.3 mg/dl (8.5-10.1); Est GFR (Non-African American) 52.6 ml/min; Globulin 3.2 gm/dl (2.5-4.0); Potassium 4.8 mmol/L (3.5-5.1); Total Protein 7.1 gm/dl (6.0-8.3)
--- NOTE | 2021-07-24 13:04 | History & Physical Report ---
Date of Service July 24, 2021 Assessment & Plan (1) Tibial fracture: Plan: Closed displaced tibial fracture of the right lower extremity- acute - Patient is high risk for deconditioning and functional loss- PT/OT consultation with likely rehab - High risk for VTE- Lovenox 40mg Q12 hours for now- await further surgical evaluation and PT/OT evaluation- if poor mobility consider increasing prophylaxis- eliquis likely limited secondary to obesity - SCDs to left leg if able - Orthopaedics consulted secondary to weight and likely effect on overall mortality - consider IM nail given morbid obesity - Secondary survey with rib pain- lidocaine patch to left rib - Tiered pain control - non-weight bearing right leg (2) Anxiety: Plan: Continue with Duloxetine 60mg daily (3) Asthma: Plan: Continue with albuterol and Advair inhalers montelukast well controlled (4) Depression: Plan: As above (5) Hypertension: Plan: Diltiazem 360 daily- dose now continue lisonipril (6) Obesity: Plan: Morbidly obese- with fracture greatly reducing overall rehab and risk of loss of functional status (7) Restless leg syndrome: Plan: Continue ropinerole (8) Sleep apnea: Plan: CPAP 13 CMH20 where with napping as well as at night History of Present Illness Primary Care Provider: Toni Gonzalez MD 61 YOF with medical history of: Morbid obesity, lymphedema, TRACIE, HTN, asthma, RLS, chronic back pain, OA knees. Patient comes to the EMD today via EMS secondary to falling at home. This has resulted in acute mildly comminuted fracture involving the proximal tibial metaphysis and metadiaphyseal junction which demonstrates 6 mm medial displacement. This was splinted by the EMD and hospitalist service was consulted for admission. Secondary to her Obesity and overall likelyhood of functional decline with this - Orthopaedics will be consulted for evaluation for repair. The patient states that originally on Thursday she had pain in the right lower leg when getting out of bed on Thursday with weight bearing. She can not recall any trauma or injury to this site. She thought that it was likely just related to her chronic pain. She called her PCP and for concern for possible VTE she was to come to the EMD to get evaluated, upon getting up to get ready she stood up and fell backwards on to her left side and buttocks- she fell on-top of chair and her walker. She did not recall any sounds of cracking or popping, but did have pain to the right lower leg following this. She does not recall any other pain. Her was with her and tried to help brace her fall. Patient will be admitted for pain control, orthopaedics evaluation, PT/OT consultation for ambulatory function and rehab evaluation. COVID test on admission is: PENDING Allergies Allergy/AdvReac Type Severity Reaction Status Date / Time No Known Allergies Allergy Unknown Verified 04/12/19 15:26 Home Medications Medication Instructions Recorded Confirmed Type albuterol sulfate 90 mcg/actuation 2 puffs INH Q6H PRN 11/23/18 07/24/21 History aerosol inhaler (ProAir HFA) duloxetine 60 mg capsule,delayed 60 mg PO DAILY 11/23/18 07/24/21 History release (Cymbalta) diltiazem HCl 120 mg 360 mg PO DAILY cap 12/06/18 07/24/21 History capsule,extended release 12 hr lisinopril 10 mg tablet 10 mg PO DAILY 03/10/19 07/24/21 History CPAP Supplies #1 ea 04/12/19 04/12/19 Rx fluticasone 250 mcg-salmeterol 50 1 puffs INH Q12H #60 ea 04/12/19 07/24/21 Rx mcg/dose blistr powdr for inhalation (Wixela Inhub) montelukast 10 mg tablet 10 mg PO QPM #30 tab 08/31/19 07/24/21 Rx (Singulair) diclofenac sodium 75 mg 75 mg PO TID PRN 07/24/21 07/24/21 History tablet,delayed release omeprazole 20 mg capsule,delayed 20 mg PO BID 07/24/21 07/24/21 History release oxybutynin chloride 10 mg 10 mg PO DAILY 07/24/21 07/24/21 History tablet,extended release 24 hr ropinirole 0.5 mg tablet 1 mg PO HS 07/24/21 07/24/21 History Past Med/Surg History Medical History Asthma Cough History of basal cell carcinoma History of dysplastic nevus Morbid obesity Obstructive sleep apnea Restless leg syndrome Sleep apnea SOB (shortness of breath) Surgical History H/O tubal ligation History of adenoidectomy Hx of tonsillectomy Hx of tonsillectomy Previous section S/P section S/P dilation and curettage S/P wisdom tooth extraction Family History Denies family history of Ovarian cancer Breast cancer Colorectal cancer Uterine cancer Social History Smoking Status: Never smoker Hx Alcohol Use: No Hx Substance Use: No Feels Safe at Home: Yes Review of Systems Review of Systems: REVIEW OF SYSTEMS: Constitutional: No fever, sweats or chills Eyes: No diplopia, no worsening or blurred vision ENT: normal hearing, no trouble swallowing Respiratory: No cough, sputum, dyspnea at rest or on exertion Cardiovascular: No chest pain, tightness or palpitations Abdomen: No pain, nausea, vomiting, diarrhea or constipation Musculoskeletal: (+) joint pain, calf pain, swelling Neurologic: (+) chronic walks with walker, Psychiatric: No anxiety or depression Skin: No rash or itch Physical Exam Physical Exam: PHYSICAL EXAM: General: awake, alert, no apparent distress Head: Normocephalic, atraumatic ENT: PERRLA, EOMI, no pharyngeal exudate, mucous membranes dry Neuro: AAO x 3, speech clear and appropriate, strength intact bilaterally 5/5, sensation intact and equal all extremities and dermatomes, no pronator drift Chest: equal rise and fall of the chest, no accessory muscle use, no heaves or thrills, Clear to auscultation, on room air, Cardiac: Regular rate and rhythm, telemetry reviewed, skin warm dry, cap refill <3 seconds, peripheral pulses +2 no JVD, grade I systolic murmur, + 3 lymphedema to right lower leg GI: NABS x 4 quadrants, soft, nontender to palpation, no rebound, guarding or tenderness : hare placed to gravity MSK: Pain with palpation to left thoracic ribs, does not increase pain with inspiration, no cervical pain- full range of motion of the neck, no chest wall crepitus or pain, shoulder without pain and full range of motion, left forearm with bruise, old scar and fracture, abdomen is non-tender, pelves stable and hips with pain to palpation, no pain or limited ROM with placement of hare, right lower leg in splint with tess wrap to above the knee- sensation to toes and movement of toes is intact, left lower leg without pain and left knee without pain and full ROM Results & Data Results & Data ([facility]) Vital Signs (Past 12 Hours) Vital Signs Temp Pulse Resp BP Pulse Ox 07/24/21 10:13 96 07/24/21 09:50 36.7 C 80 18 206/71 H 97 Laboratory Results Abnormal lab results 07/24/21 07/24/21 Range/Units 10:25 10:25 RBC 3.97 L (4.2-5.4) M/uL Hgb 11.0 L (12.0-16.0) g/dL Hct 35.4 L (37-47) % MCHC 31.1 L (32-36) g/dL RDW Std Deviation 48.2 H (36.4-46.3) fL RDW Coeff of Aleida 14.7 H (11.5-14.5) % Lymph # (Auto) 0.78 L (1.2-3.4) K/uL [place] # (Auto) 0.60 H (0.11-0.59) K/uL Immature Gran # (Auto) 0.03 H (0.00-0.02) K/uL Glucose 114 H (70-99(Fasting)) mg/dl Alkaline Phosphatase 109 H (34-104) U/L Diagnostic Findings Chest X-Ray 07/24/21 09:56 XR chest 1V portable HISTORY: fall COMPARISON: Chest 09/13/2018. FINDINGS: The cardiac silhouette is moderately enlarged. This is progressed in the interval. No pneumothorax. No pleural effusions. There is mild central pulmonary vascular congestion without overt edema. No focal lung consolidations to suggest pneumonia. No acute rib fractures identified. IMPRESSION: 1. Moderate enlargement of cardiac silhouette which has progressed in the interval. 2. There is mild central pulmonary vascular congestion without overt edema. ACT 112: Negative or not required by law. Electronically signed by: James Silva M.D. 07/24/2021 10:23 AM Forearm X-Ray 07/24/21 09:56 XR forearm LT 2V CLINICAL HISTORY: fall, distal swelling COMPARISON: None FINDINGS: Distal left radial plate and screw fixation is noted. There is a healed distal left radial fracture. No acute fracture of the left radius or ulna is identified. Note is made of a alignment of the left elbow is anatomic. There is no evidence for a left elbow joint effusion. Distal left forearm soft tissue swelling. IMPRESSION: 1. No acute fracture within the left radius or ulna. 2. Healed distal left radial fracture status post internal fixation. 3. Dorsal distal left forearm soft tissue swelling. ACT 112: Negative or not required by law. Electronically signed by: Neeraj Hollingsworth M.D. 07/24/2021 10:23 AM Tibia/Fibula X-Ray 07/24/21 09:56 XR tibia fibula RT 2V HISTORY: 61 years-old Female pain acute pain of the right lower leg status post trauma COMPARISON: Right knee radiographs 11/12/2017 TECHNIQUE: 2 views of the right tibia and fibula FINDINGS: Severe osteoarthritis of the right knee with chronic subluxation. There is an acute mildly comminuted fracture involving the proximal tibial metaphysis and metadiaphyseal junction which demonstrates 6 mm medial displacement. No additional acute fracture or dislocation is identified. The fibula appears intact. Marked soft tissue prominence with soft tissue calcifications. Osteoarthritis of the foot and ankle. IMPRESSION: Acute comminuted slightly displaced fracture of the proximal tibial metaphysis and metadiaphyseal junction. ACT 112: Negative or not required by law. The above report was generated using voice recognition software. It may contain grammatical, syntax or spelling errors. Electronically signed by: Albino Graf M.D. 07/24/2021 10:31 AM Venous Doppler Study 07/24/21 09:56 RIGHT LOWER EXTREMITY VENOUS DOPPLER CLINICAL HISTORY: Right lower extremity pain and swelling. COMPARISON STUDY: No previous studies for comparison. TECHNIQUE: Sonography of the deep venous system of the right lower extremity was performed. Compression and augmentation were evaluated. FINDINGS: The right common femoral, superficial femoral and popliteal veins were compressible. Augmentation was normal. Flow was shown within the deep calf vessels although evaluation was suboptimal due to lower extremity edema. IMPRESSION: No evidence of deep venous thrombus within the right lower extremity although evaluation of the calf vessels was suboptimal. ACT 112: Negative or not required by law. Electronically signed by: Neeraj Hollingsworth M.D. 07/24/2021 11:32 AM Medications Administered Home Medications albuterol sulfate 90 mcg/actuation aerosol inhaler (ProAir HFA) 2 puffs INH Q6H PRN 11/23/18 [History Confirmed 07/24/21] duloxetine 60 mg capsule,delayed release (Cymbalta) 60 mg PO DAILY 11/23/18 [History Confirmed 07/24/21] diltiazem HCl 120 mg capsule,extended release 12 hr 360 mg PO DAILY cap 12/06/18 [History Confirmed 07/24/21] lisinopril 10 mg tablet 10 mg PO DAILY 03/10/19 [History Confirmed 07/24/21] CPAP Supplies #1 ea 04/12/19 [Rx Confirmed 04/12/19] fluticasone 250 mcg-salmeterol 50 mcg/dose blistr powdr for inhalation (Wixela Inhub) 1 puffs INH Q12H #60 ea 04/12/19 [Rx Confirmed 07/24/21] montelukast 10 mg tablet (Singulair) 10 mg PO QPM #30 tab 08/31/19 [Rx Confirmed 07/24/21] diclofenac sodium 75 mg tablet,delayed release 75 mg PO TID PRN 07/24/21 [History Confirmed 07/24/21] omeprazole 20 mg capsule,delayed release 20 mg PO BID 07/24/21 [History Confirmed 07/24/21] oxybutynin chloride 10 mg tablet,extended release 24 hr 10 mg PO DAILY 07/24/21 [History Confirmed 07/24/21] ropinirole 0.5 mg tablet 1 mg PO HS 07/24/21 [History Confirmed 07/24/21] Active Medications Diltiazem HCl (Diltiazem Er 180 Mg Capcr) 360 mg PO NOW STA Stop: 07/24/21 12:45 Discontinued Medications Morphine Sulfate (Morphine Sulfate 4 Mg/Ml 1 Ml Carp\Vial) 4 mg IV NOW STA Stop: 07/24/21 09:58 Last Admin: 07/24/21 10:28 Dose: 4 mg Documented by: [id number] ECG Additional Comments: Normal sinus rhythm Normal ECG When compared with ECG of 03-MAR-2004 10:27, Sinus rhythm has replaced Ectopic atrial rhythm Code Status & VTE Plan Code Status CODE: FULL VTE: SCDS, Lovenox 40mg sq BID VTE Prophylaxis Plan VTE Prophylaxis will be ordered: Yes Supervising Physician Co-Signing Physician Notes I personally saw and examined the patient. I verified all lou points and agree with DARRICK Brand with the following exceptions and/or additions: PG Care Time/CCT Total # of Minutes Spent Total Time Spent with Patient: Total time spent is greater than 50% in coordination of care (as documented) at patient's floor/unit and/or counseling patient: Coding Level of Care Code 28953 Initial Inpt Care Lvl 3 Diagnoses Tibial fracture S82.209A Anxiety F41.9 Asthma J45.909 Depression F32.9 Hypertension I10 Obesity E66.9 Restless leg syndrome G25.81 Sleep apnea G47.30
[2021-07-24] MEDS ORDERED: dilTIAZem HCL 180 MG CAPCR PO STA (13:23)
[2021-07-24] MEDS ORDERED: ONDANSETRON INJ 2 MG/ML 2 ML VIAL IV PRN (17:04)
[2021-07-24] MEDS ORDERED: POLYETHYLENE (MIRALAX) 17 GM PACK PO PRN (17:04)
[2021-07-24] MEDS ORDERED: MoRPHine SULFATE 4 MG/ML 1 ML CARP\\VIAL IV PRN (17:04)
[2021-07-24] MEDS ORDERED: ALBUTEROL HFA 8 GM INHALER INH PRN (17:27)
[2021-07-24] MEDS: LIDOCAINE 5% 1 PATCH TD SCH (18:41)
[2021-07-24] MEDS: PANTOprazole 40 MG TAB PO SCH (19:49)
[2021-07-24] MEDS: MONTELUKAST SODIUM 10 MG TABLET PO SCH (19:49)
[2021-07-24] MEDS: ENOXAPARIN INJ 40 MG/0.4 ML SYR SQ SCH (19:51)
[2021-07-24] MEDS: rOPINIRole HCL 1 MG TABLET PO SCH (19:51)
[2021-07-24] MEDS: ACETAMINOPHEN 325 MG TAB PO PRN (19:55)
[2021-07-25 06:46] LABS: Hematocrit (blood only) 32.4 % (37-47); Mean Corpuscular Hemoglobin 27.9 pg (25-34); Mean Corpuscular Hgb Conc 30.9 g/dL (32-36); Mean Corpuscular Volume 90.3 fL (80-100); Mean Platelet Volume 9.6 fL (7.4-10.4); Platelet Count 187 K/uL (130-400); RDW Coefficient of Variation 14.9 % (11.5-14.5); RDW Standard Deviation 49.3 fL (36.4-46.3); Red Blood Count 3.59 M/uL (4.2-5.4); White Blood Count 6.09 K/uL (4.8-10.8)
[2021-07-25 07:03] LABS: BUN Creatinine Ratio 13.4 (10-20); Calcium 8.6 mg/dl (8.5-10.1); Creatinine Clr Calc Pharmacy 113.1 ml/min; Est GFR (African American) 72.5 ml/min; Est GFR (Non-African American) 62.6 ml/min; Magnesium 2.1 mg/dl (1.7-2.4); Potassium 3.9 mmol/L (3.5-5.1)
[2021-07-25 07:07] LABS: Estimated Average Glucose 108 mg/dl; Hemoglobin A1C 5.4 % (4.5-5.6)
[2021-07-25 07:16] LABS: Basophils # (auto) 0.03 K/uL (0-0.2); Basophils % (auto) 0.5 %; Eosinophils # (auto) 0.24 K/uL (0-0.5); Eosinophils % (auto) 3.9 %; Immature Granulocytes # (auto) 0.02 K/uL (0.00-0.02); Immature Granulocytes % (auto) 0.3 %; Lymphocytes # (auto) 1.27 K/uL (1.2-3.4); Lymphocytes % (auto) 20.9 %; Monocytes # (auto) 0.47 K/uL (0.11-0.59); Monocytes % (auto) 7.7 %; Neutrophils # (auto) 4.06 K/uL (1.4-6.5); Neutrophils % (auto) 66.7 %
--- NOTE | 2021-07-25 07:52 | Hospitalist Progress Note ---
Date of Service July 25, 2021 Assessment & Plan (1) Tibial fracture: Plan: 2-3 days ongoing RLL pain between knee and ankle. Using diclofenac without improvement. PCP sent to ER for eval of possible DVT --> At home on rolling computer chair and trying to stand to roll the chair over and fell onto her buttocks Imaging with closed displaced tibial fracture of the right lower extremity- acute mildly comminuted fracture involving the proximal tibial metaphysis and metadiaphyseal junction which demonstrates 6 mm medial displacement High risk for deconditioning and functional loss- PT/OT consultation with likely rehab * - High risk for VTE- Lovenox 40mg Q12 hours for now- await further surgical evaluation and PT/OT evaluation- if poor mobility consider increasing prophylaxis- eliquis likely limited secondary to obesity * Venous Doppler NEGATIVE for DVT but poor eval of calf vessels SCDs to left leg if able Pain control, antiemetics prn -- appeared comfortable during examination. 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 Anemic on admission, also checking iron studies given reports of restless legs -- see below, also with B12 deficiency PT/OT consult after ortho eval (3) Anemia: Plan: Hgb 11 on admission, normocytic Reported using diclofenac 1-3 times daily at home never had c-scope in past, no alternating bowel habits/constipation/diarrhea No melena/hematochezia reported Iron studies checked -- Iron 29, ferritin 41.5, trans sat 9% --> Venofer 300mg x 1 ordered for today, can repeat in AM B12 checked --> LOW 147 --> could contribute to balance issues as well but was AOX3, reports tingling occasionally but pain/cramping were primary complaints. Mag was 2.1 (4) B12 deficiency: Plan: checked given fall/anemia --> low at 147, IM replacement ordered while inpatient and continue PO at discharge (5) Anxiety: Plan: Continue with Duloxetine 60mg daily (6) Asthma: Plan: Continue with albuterol and Advair inhalers montelukast well controlled (7) Depression: Plan: As above (8) Hypertension: Plan: continue lisonipril 10mg daily, diltiazem 360mg BP elevated 183/73, likely 2nd to pain --> monitor Hydralazine to be available prn if needed (9) Obesity: Plan: Morbidly obese- with fracture greatly reducing overall rehab and risk of loss of functional status (10) Restless leg syndrome: Plan: Continue ropinirole Will check iron studies given anemia on admission --> see above, replacement ordered (11) Sleep apnea: Plan: Continue CPAP 13 CMH20, in room (12) Incontinence in female: Plan: continue oxybuytnin (13) Contusion of left forearm: Plan: pain control as outlined imaging without fx (14) GERD (gastroesophageal reflux disease): Plan: continue PPI BID while inpatient -- on omeprazole BID 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 doing alright pain controlled LLE in splint getting washed up does have redness/fungal appearance to skin folds, will order desenex. States has been having pain since Thursday/Thursday, worsening. Fell yesterday when attempting to maneuver with computer chair and wheeled walker. Did feel feverish/chills yesterday but never checked temp. No cough/shortness of breath (with exception getting to the top of her steps and she has to take a couple seconds to catch her breath). No urinary symptoms although has catheter in and draining concentrated urine. She states she has not been drinking much, had a soda yesterday but not much today. Discussed hemoglobin -- has never had c-scope. Had been using tramadol for pain control and was having "shortness of breath" fr om the pain, but the shortness of breath had improved since switching to diclofenac which she had been on in the past. Takes every day, 1-3 tablets as needed for pain. No blood in stool noted, no issues with constipation. Had seen Dr Yousif in the past for her knees but most recently was following with Dr Clay since her forearm injury from a fall requiring intervention. Consult switched back, he will be in house tomorrow but will alert his PA about consultation switched back per patient request. Review of Systems Review of Systems: All systems reviewed & are unremarkable except as noted in HPI & below Physical Exam Physical Exam: General: WD/WN morbidly obese female female laying flat in bed getting washed up, no acute distress HEENT: slight flushing of cheeks, head atraumatic normocephalic, mmm, trachea midline, thick neck Resp: CTAB but diminished throughout secondary to body habitus, no crackles/rales appreciated, on room air CV: RRR, +systolic murmur, no S3, S1/S2 present. 3+ lymphedema to LE, non- pitting, chronic venous stasis changes to L ankle, pulses palpable , calves non- tender GI:+BS, soft, obese, non-tender, +pannus, erythema to groin folds : Shipley draining concentrated yellow urine MSK/Neuro: RLE in splint with NORMAN wrap, toes mobile, NVI, moves all extremities/follows commands. L forearm ecchymosis, prior surgical scar well healed Psych: AOX3, cooperative and pleasant Results & Data Results & Data ([facility]) Vital Signs (Past 12 Hours) Vital Signs Temp Pulse Pulse Resp BP Pulse Ox 07/25/21 07:20 36.5 C 76 20 183/73 H 93 07/25/21 01:50 74 26 H 74 L 07/24/21 22:18 37.3 C 71 18 182/67 H 92 Laboratory Results 07/25/21 07/25/21 07/25/21 Range/Units 06:14 06:14 06:14 WBC 6.09 (4.8-10.8) K/uL RBC 3.59 L (4.2-5.4) M/uL Hgb 10.0 L (12.0-16.0) g/dL Hct 32.4 L (37-47) % MCV 90.3 (80-100) fL MCH 27.9 (25-34) pg MCHC 30.9 L (32-36) g/dL RDW Std Deviation 49.3 H (36.4-46.3) fL RDW Coeff of Aleida 14.9 H (11.5-14.5) % Plt Count 187 (130-400) K/uL MPV 9.6 (7.4-10.4) fL Immature Gran % (Auto) 0.3 % Neut % (Auto) 66.7 % Lymph % (Auto) 20.9 % [place] % (Auto) 7.7 % Eos % (Auto) 3.9 % Baso % (Auto) 0.5 % Neut # (Auto) 4.06 (1.4-6.5) K/uL Lymph # (Auto) 1.27 (1.2-3.4) K/uL [place] # (Auto) 0.47 (0.11-0.59) K/uL Eos # (Auto) 0.24 (0-0.5) K/uL Baso # (Auto) 0.03 (0-0.2) K/uL Immature Gran # (Auto) 0.02 (0.00-0.02) K/uL PT (9.0-12.0) Seconds INR (0.9-1.1) Sodium 138 (136-145) mmol/L Potassium 3.9 (3.5-5.1) mmol/L Chloride 107 (98-107) mmol/L Carbon Dioxide 25 (21-32) mmol/L Anion Gap 6 (3-11) BUN 13 (6-23) mg/dl Creatinine 0.97 (0.6-1.2) mg/dl Est Cr Clr Drug Dosing 113.1 ml/min Est GFR ( Amer) 72.5 ml/min Est GFR (Non-Af Amer) 62.6 ml/min BUN/Creatinine Ratio 13.4 (10-20) Glucose 100 H (70-99(Fasting)) mg/dl Estimat Average Glucose 108 mg/dl Hemoglobin A1c 5.4 (4.5-5.6) % Calcium 8.6 (8.5-10.1) mg/dl Magnesium 2.1 (1.7-2.4) mg/dl Total Bilirubin (0.2-1.0) mg/dl AST (13-39) U/L ALT (7-52) U/L Alkaline Phosphatase (34-104) U/L Troponin I High Sens (0-14) pg/ml Total Protein (6.0-8.3) gm/dl Albumin (3.4-5.0) gm/dl Globulin (2.5-4.0) gm/dl Albumin/Globulin Ratio (0.9-2) SARS-CoV-2, RNA, NAAT (NEGATIVE) 07/24/21 07/24/21 07/24/21 Range/Units 12:49 10:25 10:25 WBC (4.8-10.8) K/uL RBC (4.2-5.4) M/uL Hgb (12.0-16.0) g/dL Hct (37-47) % MCV (80-100) fL MCH (25-34) pg MCHC (32-36) g/dL RDW Std Deviation (36.4-46.3) fL RDW Coeff of Aleida (11.5-14.5) % Plt Count (130-400) K/uL MPV (7.4-10.4) fL Immature Gran % (Auto) % Neut % (Auto) % Lymph % (Auto) % [place] % (Auto) % Eos % (Auto) % Baso % (Auto) % Neut # (Auto) (1.4-6.5) K/uL Lymph # (Auto) (1.2-3.4) K/uL [place] # (Auto) (0.11-0.59) K/uL Eos # (Auto) (0-0.5) K/uL Baso # (Auto) (0-0.2) K/uL Immature Gran # (Auto) (0.00-0.02) K/uL PT 10.7 (9.0-12.0) Seconds INR 1.0 (0.9-1.1) Sodium 140 (136-145) mmol/L Potassium 4.8 (3.5-5.1) mmol/L Chloride 106 (98-107) mmol/L Carbon Dioxide 26 (21-32) mmol/L Anion Gap 8 (3-11) BUN 17 (6-23) mg/dl Creatinine 1.12 (0.6-1.2) mg/dl Est Cr Clr Drug Dosing 98.0 ml/min Est GFR ( Amer) 61.0 ml/min Est GFR (Non-Af Amer) 52.6 ml/min BUN/Creatinine Ratio 15.2 (10-20) Glucose 114 H (70-99(Fasting)) mg/dl Estimat Average Glucose mg/dl Hemoglobin A1c (4.5-5.6) % Calcium 9.3 (8.5-10.1) mg/dl Magnesium (1.7-2.4) mg/dl Total Bilirubin 1.0 (0.2-1.0) mg/dl AST 13 (13-39) U/L ALT 11 (7-52) U/L Alkaline Phosphatase 109 H (34-104) U/L Troponin I High Sens 12.4 (0-14) pg/ml Total Protein 7.1 (6.0-8.3) gm/dl Albumin 3.9 (3.4-5.0) gm/dl Globulin 3.2 (2.5-4.0) gm/dl Albumin/Globulin Ratio 1.2 (0.9-2) SARS-CoV-2, RNA, NAAT NEGATIVE (NEGATIVE) 07/24/21 Range/Units 10:25 WBC 7.62 (4.8-10.8) K/uL RBC 3.97 L (4.2-5.4) M/uL Hgb 11.0 L (12.0-16.0) g/dL Hct 35.4 L (37-47) % MCV 89.2 (80-100) fL MCH 27.7 (25-34) pg MCHC 31.1 L (32-36) g/dL RDW Std Deviation 48.2 H (36.4-46.3) fL RDW Coeff of Aleida 14.7 H (11.5-14.5) % Plt Count 195 (130-400) K/uL MPV 9.7 (7.4-10.4) fL Immature Gran % (Auto) 0.4 % Neut % (Auto) 78.6 % Lymph % (Auto) 10.2 % [place] % (Auto) 7.9 % Eos % (Auto) 2.5 % Baso % (Auto) 0.4 % Neut # (Auto) 5.99 (1.4-6.5) K/uL Lymph # (Auto) 0.78 L (1.2-3.4) K/uL [place] # (Auto) 0.60 H (0.11-0.59) K/uL Eos # (Auto) 0.19 (0-0.5) K/uL Baso # (Auto) 0.03 (0-0.2) K/uL Immature Gran # (Auto) 0.03 H (0.00-0.02) K/uL PT (9.0-12.0) Seconds INR (0.9-1.1) Sodium (136-145) mmol/L Potassium (3.5-5.1) mmol/L Chloride (98-107) mmol/L Carbon Dioxide (21-32) mmol/L Anion Gap (3-11) BUN (6-23) mg/dl Creatinine (0.6-1.2) mg/dl Est Cr Clr Drug Dosing ml/min Est GFR ( Amer) ml/min Est GFR (Non-Af Amer) ml/min BUN/Creatinine Ratio (10-20) Glucose (70-99(Fasting)) mg/dl Estimat Average Glucose mg/dl Hemoglobin A1c (4.5-5.6) % Calcium (8.5-10.1) mg/dl Magnesium (1.7-2.4) mg/dl Total Bilirubin (0.2-1.0) mg/dl AST (13-39) U/L ALT (7-52) U/L Alkaline Phosphatase (34-104) U/L Troponin I High Sens (0-14) pg/ml Total Protein (6.0-8.3) gm/dl Albumin (3.4-5.0) gm/dl Globulin (2.5-4.0) gm/dl Albumin/Globulin Ratio (0.9-2) SARS-CoV-2, RNA, NAAT (NEGATIVE) Diagnostic Findings Chest X-Ray 07/24/21 09:56 XR chest 1V portable HISTORY: fall COMPARISON: Chest 09/13/2018. FINDINGS: The cardiac silhouette is moderately enlarged. This is progressed in the interval. No pneumothorax. No pleural effusions. There is mild central pulmonary vascular congestion without overt edema. No focal lung consolidations to suggest pneumonia. No acute rib fractures identified. IMPRESSION: 1. Moderate enlargement of cardiac silhouette which has progressed in the interval. 2. There is mild central pulmonary vascular congestion without overt edema. ACT 112: Negative or not required by law. Electronically signed by: James Silva M.D. 07/24/2021 10:23 AM Forearm X-Ray 07/24/21 09:56 XR forearm LT 2V CLINICAL HISTORY: fall, distal swelling COMPARISON: None FINDINGS: Distal left radial plate and screw fixation is noted. There is a healed distal left radial fracture. No acute fracture of the left radius or ulna is identified. Note is made of a alignment of the left elbow is anatomic. There is no evidence for a left elbow joint effusion. Distal left forearm soft tissue swelling. IMPRESSION: 1. No acute fracture within the left radius or ulna. 2. Healed distal left radial fracture status post internal fixation. 3. Dorsal distal left forearm soft tissue swelling. ACT 112: Negative or not required by law. Electronically signed by: Neeraj Hollingsworth M.D. 07/24/2021 10:23 AM Tibia/Fibula X-Ray 07/24/21 09:56 XR tibia fibula RT 2V HISTORY: 61 years-old Female pain acute pain of the right lower leg status post trauma COMPARISON: Right knee radiographs 11/12/2017 TECHNIQUE: 2 views of the right tibia and fibula FINDINGS: Severe osteoarthritis of the right knee with chronic subluxation. There is an acute mildly comminuted fracture involving the proximal tibial metaphysis and metadiaphyseal junction which demonstrates 6 mm medial displacement. No additional acute fracture or dislocation is identified. The fibula appears intact. Marked soft tissue prominence with soft tissue calcifications. Osteoarthritis of the foot and ankle. IMPRESSION: Acute comminuted slightly displaced fracture of the proximal tibial metaphysis and metadiaphyseal junction. ACT 112: Negative or not required by law. The above report was generated using voice recognition software. It may contain grammatical, syntax or spelling errors. Electronically signed by: Albino Graf M.D. 07/24/2021 10:31 AM Venous Doppler Study 07/24/21 09:56 RIGHT LOWER EXTREMITY VENOUS DOPPLER CLINICAL HISTORY: Right lower extremity pain and swelling. COMPARISON STUDY: No previous studies for comparison. TECHNIQUE: Sonography of the deep venous system of the right lower extremity was performed. Compression and augmentation were evaluated. FINDINGS: The right common femoral, superficial femoral and popliteal veins were compressible. Augmentation was normal. Flow was shown within the deep calf vessels although evaluation was suboptimal due to lower extremity edema. IMPRESSION: No evidence of deep venous thrombus within the right lower extremity although evaluation of the calf vessels was suboptimal. ACT 112: Negative or not required by law. Electronically signed by: Neeraj Hollingsworth M.D. 07/24/2021 11:32 AM PG Care Time/CCT Total # of Minutes Spent Total Time Spent with Patient: Total time spent is greater than 50% in coordination of care (as documented) at patient's floor/unit and/or counseling patient: Coding Level of Care Code 51552 Subseq Hosp Care Lvl 3 Diagnoses Tibial fracture S82.101A Encounter type: initial encounter Fracture morphology: unspecified fracture morphology Fracture type: closed Laterality: right Tibia location: proximal Anxiety F41.9 Asthma J45.909 Depression F32.9 Hypertension I10 Obesity E66.9 Restless leg syndrome G25.81 Sleep apnea G47.30 Incontinence in female R32 Contusion of left forearm S50.12XA Encounter type: initial encounter GERD (gastroesophageal reflux disease) K21.9 Anemia D64.9 B12 deficiency E53.8 Fall W19.XXXA Encounter type: initial encounter (1) Tibial fracture Encounter type: initial encounter Fracture morphology: unspecified fracture morphology Fracture type: closed Laterality: right Tibia location: proximal Qualified Code(s): S82.101A - Unspecified fracture of upper end of right tibia, initial encounter for closed fracture (2) Contusion of left forearm Encounter type: initial encounter Qualified Code(s): S50.12XA - Contusion of left forearm, initial encounter (3) Fall Encounter type: initial encounter Qualified Code(s): W19.XXXA - Unspecified fall, initial encounter
[2021-07-25] MEDS: ENOXAPARIN INJ 40 MG/0.4 ML SYR SQ SCH ×2 (09:08→21:11)
[2021-07-25] MEDS: DULoxetine HCL 60 MG CAP PO SCH (09:08)
[2021-07-25] MEDS: PANTOprazole 40 MG TAB PO SCH ×2 (09:09→21:13)
[2021-07-25] MEDS: FLUTICASONE/VILANTEROL 200/25MCG 14 PUFFS/INHALER INH SCH (09:09)
[2021-07-25] MEDS: lisinopril 10 MG TAB PO SCH (09:09)
[2021-07-25] MEDS: OXYBUTYNIN CHLORIDE XL 5 MG TABCR PO SCH (09:09)
[2021-07-25] MEDS: LIDOCAINE 5% 1 PATCH TD SCH (09:09)
[2021-07-25] MEDS: oxyCODONE HCL IR 5 MG TAB (IMMEDIATE RELEASE) PO PRN ×2 (09:10→17:21)
[2021-07-25 09:16] LABS: Ferritin 41.5 ng/ml (8-388)
[2021-07-25] MEDS ORDERED: IRON SUCROSE 300 MG in SODIUM CHLORIDE 0.9% 250 ML IV ONE (09:45)
--- NOTE | 2021-07-25 12:00 | Electrocardiogram Report ---
Test Reason : Blood Pressure : / mmHG Vent. Rate : 068 BPM Atrial Rate : 068 BPM P-R Int : 162 ms QRS Dur : 084 ms QT Int : 396 ms P-R-T Axes : 013 014 036 degrees QTc Int : 421 ms Normal sinus rhythm Normal ECG When compared with ECG of 03-MAR-2004 10:27, Sinus rhythm has replaced Ectopic atrial rhythm Confirmed by Oleg Powers ([id number]) on 07/25/2021 11:59:46 AM Referred By: Confirmed By:Oleg Powers
[2021-07-25] MEDS: MICONAZOLE NITRATE POWDER 43 GM EXT SCH ×2 (12:24→21:13)
[2021-07-25] MEDS: CYANOCOBALAMIN 1000 MCG/ML VIAL IM SCH (12:24)
[2021-07-25 13:08] LABS: Lyme Ab IgM w/WB Rflx Negative (Negative)
[2021-07-25 13:38] LABS: Lyme Ab IgG w/WB Rflx Negative (Negative)
[2021-07-25] MEDS ORDERED: hydrALAZINE HCL 20 MG/ML VIAL IV PRN (13:56)
--- NOTE | 2021-07-25 15:11 | CT Scan Report ---
CT tib/fib RT wo con HISTORY: A 61-year-old female, Proximal Tibia Fracture, acute fracture of the right tibia and fibula. COMPARISON: Right tibia and fibula radiographs 07/24/2021. TECHNIQUE: Multiple axial CT images of the right tibia and fibula were obtained without the use of IV contrast. Additional 3-D rendering images were generated from a separate workstation. A dose lowerin g technique was used consistent with the principals of ALARA. FINDINGS: There is severe patellofemoral with moderate to severe lateral and moderate medial compartment osteoa rthritis. No acute fracture or dislocation identified within the knee. There is an acute and comminut ed fracture involving the proximal metadiaphyseal junction of the tibia which demonstrates lateral di splacement of 7 mm and mild cortical impaction measuring up to 1.5 cm. Anterior fracture lines extend into the tibial tuberosity. The craniocaudal extent of the fracture extends up to approximately 6 cm in length. No tibial plateau fracture identified. There is no additional acute fracture or dislocati on identified. The fibula appears intact. Osteoarthritis of the foot and ankle with degenerative spur ring of the calcaneus. Patient obesity is noted. There is moderate atrophy of the lower extremity musculature. There is diff use skin thickening with subcutaneous edema and subcutaneous calcifications. Tendons and ligaments ar e not well evaluated by MRI technique. Arterial calcifications are noted. No large intramuscular siomara tushar identified. Partially imaged joint effusion with lateral recess loose bodies measuring up to 5 m m. IMPRESSION: 1. Acute, comminuted, mildly displaced and impacted fracture of the proximal tibial metadiaphyseal ju nction. No fracture extension identified involving the tibial plateaus. 2. Tricompartmental osteoarthritis, severe within the patellofemoral joint. 3. Partially imaged joint effusion of the knee with subcentimeter intra-articular loose bodies, likel y degenerative related. 4. Chronic soft tissue calcifications with diffuse subcutaneous edema. ACT 112: Negative or not required by law. The above report was generated using voice recognition software. It may contain grammatical, syntax o r spelling errors. Dictated: 07/25/2021 2:19 PM Transcribed: 07/25/2021 2:41 PM [facility] [id number] [facility] Electronically signed by: Albino Graf M.D. 07/25/2021 3:10 PM
--- NOTE | 2021-07-25 16:37 | Orthopedic Consultation ---
Date of Consultation July 25, 2021 Assessment & Plan (1) Tibial fracture: She has a comminuted and moderately displaced right proximal tibial shaft fracture in the setting of gross morbid obesity with a BMI of 75. This was an atraumatic fracture, likely related to her weight and relative osteoporosis. I advised her that with her morbid obesity, she is at much higher risk for complication with any surgical treatment of this fracture. She may be better served at a tertiary care facility due to her potential for postoperative complications. However, she is a previous patient of Dr. Landry, and she is hoping that he would agree to do her surgery. We will await his input. We did briefly discussed nonoperative treatment, but I am not sure this would be recommended. It would be very difficult to immobilize her fracture due to her massive soft tissue envelope, and I think she would be at high risk for increased displacement even during transfers. Nonweightbearing for now on that right leg. History of Present Illness Reason for Consultation: Right leg pain Attending Physician: Jovana Lezama MD History of Present Illness Ms. Moody is a 61-year old morbidly obese female who presents with right leg pain and difficulty with bearing weight over the past day. She denies any fall that caused this pain. She reports that she normally has quite a bit of bilateral leg pain when she first gets up in the morning. However, yesterday this right leg pain progressively worsened over the morning hours to the point where she could no longer bear weight. She denies ever hearing any pop or crack. She denies any sort of trauma whatsoever. She reports no history of diabetes, but she does state that she has a worsening heart murmur. She is scheduled to see a manager fund for this. She also has history of asthma but denies diabetes. Allergies Allergy/AdvReac Type Severity Reaction Status Date / Time No Known Allergies Allergy Unknown Verified 04/12/19 15:26 Home Medications Medication Instructions Recorded Confirmed Type albuterol sulfate 90 mcg/actuation 2 puffs INH Q6H PRN 11/23/18 07/24/21 History aerosol inhaler (ProAir HFA) duloxetine 60 mg capsule,delayed 60 mg PO DAILY 11/23/18 07/24/21 History release (Cymbalta) diltiazem HCl 120 mg 360 mg PO DAILY cap 12/06/18 07/24/21 History capsule,extended release 12 hr lisinopril 10 mg tablet 10 mg PO DAILY 03/10/19 07/24/21 History CPAP Supplies #1 ea 04/12/19 04/12/19 Rx fluticasone 250 mcg-salmeterol 50 1 puffs INH Q12H #60 ea 04/12/19 07/24/21 Rx mcg/dose blistr powdr for inhalation (Wixela Inhub) montelukast 10 mg tablet 10 mg PO QPM #30 tab 08/31/19 07/24/21 Rx (Singulair) diclofenac sodium 75 mg 75 mg PO TID PRN 07/24/21 07/24/21 History tablet,delayed release omeprazole 20 mg capsule,delayed 20 mg PO BID 07/24/21 07/24/21 History release oxybutynin chloride 10 mg 10 mg PO DAILY 07/24/21 07/24/21 History tablet,extended release 24 hr ropinirole 0.5 mg tablet 1 mg PO HS 07/24/21 07/24/21 History Patient History Medical History Asthma Cough History of basal cell carcinoma History of dysplastic nevus Morbid obesity Obstructive sleep apnea Restless leg syndrome Sleep apnea SOB (shortness of breath) Surgical History H/O tubal ligation History of adenoidectomy Hx of tonsillectomy Hx of tonsillectomy Previous section S/P section S/P dilation and curettage S/P wisdom tooth extraction Family History Denies family history of Ovarian cancer Breast cancer Colorectal cancer Uterine cancer Social History Smoking Status: Never smoker Hx Alcohol Use: No Hx Substance Use: No Preferred Language: Greenlandic Communication Ability: Effective 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 No obvious gross deformity, but this is very difficult to assess due to her massive soft tissue envelope. I am unable to assess her compartments due to her thick adipose tissue layer. However, she has good toe dorsiflexion plantarflexion without obvious pain. No pain with passive stretch. Foot is warm well perfused. Motor and sensory function is intact distally. Results & Data ([facility]) Vital Signs (Past 12 Hours) Vital Signs Temp Pulse Resp BP Pulse Ox 07/25/21 15:39 37 C 69 20 167/78 H 93 07/25/21 07:20 36.5 C 76 20 183/73 H 93 Diagnostic Findings Right lower leg x-rays show an obvious fracture at the proximal tibial shaft. It appears moderately displaced. There is some irregularity up at the joint surface. It is difficult to tell whether this is related to osteophyte formation from arthritis or proximal propagation of the fracture into the tibial plateau. CT scan of the right leg shows a comminuted and moderately displaced fracture at the proximal tibial shaft at the metaphysealdiaphyseal junction. No obvious extension up into the tibial plateau. Severe tricompartmental knee joint arthritis is noted. No obvious fibula fracture is seen. (1) Tibial fracture Encounter type: initial encounter Fracture morphology: unspecified fracture morphology Fracture type: closed Laterality: right Tibia location: proximal Qualified Code(s): S82.101A - Unspecified fracture of upper end of right tibia, initial encounter for closed fracture
[2021-07-25] MEDS: MONTELUKAST SODIUM 10 MG TABLET PO SCH (21:14)
[2021-07-25] MEDS: rOPINIRole HCL 1 MG TABLET PO SCH (21:14)
[2021-07-26 07:24] LABS: Basophils # (auto) 0.02 K/uL (0-0.2); Basophils % (auto) 0.3 %; Hematocrit (blood only) 33.9 % (37-47); Hemoglobin 10.5 g/dL (12.0-16.0); Immature Granulocytes # (auto) 0.05 K/uL (0.00-0.02); Immature Granulocytes % (auto) 0.8 %; Lymphocytes # (auto) 1.17 K/uL (1.2-3.4); Lymphocytes % (auto) 17.6 %; Mean Corpuscular Hemoglobin 27.7 pg (25-34); Mean Corpuscular Volume 89.4 fL (80-100); Mean Platelet Volume 9.6 fL (7.4-10.4); Monocytes # (auto) 0.51 K/uL (0.11-0.59); Monocytes % (auto) 7.7 %; Neutrophils # (auto) 4.69 K/uL (1.4-6.5); Neutrophils % (auto) 70.6 %; Platelet Count 198 K/uL (130-400); RDW Standard Deviation 48.4 fL (36.4-46.3); Red Blood Count 3.79 M/uL (4.2-5.4); White Blood Count 6.64 K/uL (4.8-10.8)
[2021-07-26 08:12] LABS: BUN Creatinine Ratio 12.8 (10-20); Calcium 8.9 mg/dl (8.5-10.1); Creatinine Clr Calc Pharmacy 116.7 ml/min; Est GFR (African American) 75.4 ml/min; Magnesium 2.1 mg/dl (1.7-2.4)
[2021-07-26 08:20] LABS: Folate (Folic Acid) 7.59 ng/ml (>5.38)
[2021-07-26] MEDS: LIDOCAINE 5% 1 PATCH TD SCH (08:52)
[2021-07-26] MEDS: PANTOprazole 40 MG TAB PO SCH ×2 (08:53→20:44)
[2021-07-26] MEDS: OXYBUTYNIN CHLORIDE XL 5 MG TABCR PO SCH (08:53)
[2021-07-26] MEDS: lisinopril 10 MG TAB PO SCH (08:53)
[2021-07-26] MEDS: FLUTICASONE/VILANTEROL 200/25MCG 14 PUFFS/INHALER INH SCH (08:53)
[2021-07-26] MEDS: CYANOCOBALAMIN 1000 MCG/ML VIAL IM SCH (08:53)
[2021-07-26] MEDS: DULoxetine HCL 60 MG CAP PO SCH (08:53)
[2021-07-26] MEDS: ENOXAPARIN INJ 40 MG/0.4 ML SYR SQ SCH ×2 (08:54→20:45)
[2021-07-26] MEDS: ACETAMINOPHEN 325 MG TAB PO PRN ×2 (08:55→20:43)
[2021-07-26 09:09] LABS: Vitamin D, 25 Hydrox < 7.0 ng/ml (30-100)
[2021-07-26] MEDS: MICONAZOLE NITRATE POWDER 43 GM EXT SCH ×2 (09:14→20:42)
--- NOTE | 2021-07-26 15:56 | Communication Note ---
Date of Service: July 26, 2021 Patient is seen by Dr. Clay today. They discussed her treatment plan. Multiple concerns with surgery including her large soft tissue envelope, chronic venous stasis, and her morbid obesity. Obed feels that the patient would be a candidate for a suprapatellar IM tibial nailing to help decrease the size of the incision that would need to be made, thus decreasing the possibility of wound infection with a larger incision if a plate and screw device were to be used. Patient is in agreement for transfer to a tertiary care facility either in [facility] or [facility]. I have spoken to Anjelica June PA-C and she will begin working on transfer plans for this patient.
--- NOTE | 2021-07-26 17:00 | Discharge Summary ---
Date of Service July 26, 2021 Admission HPI Per Admitting Provider 61 YOF with medical history of: Morbid obesity, lymphedema, TRACIE, HTN, asthma, RLS, chronic back pain, OA knees. Patient comes to the EMD today via EMS secondary to falling at home. This has resulted in acute mildly comminuted fracture involving the proximal tibial metaphysis and metadiaphyseal junction which demonstrates 6 mm medial displacement. This was splinted by the EMD and hospitalist service was consulted for admission. Secondary to her Obesity and overall likelyhood of functional decline with this - Orthopaedics will be consulted for evaluation for repair. The patient states that originally on Thursday she had pain in the right lower leg when getting out of bed on Thursday with weight bearing. She can not recall any trauma or injury to this site. She thought that it was likely just related to her chronic pain. She called her PCP and for concern for possible VTE she was to come to the EMD to get evaluated, upon getting up to get ready she stood up and fell backwards on to her left side and buttocks- she fell on-top of chair and her walker. She did not recall any sounds of cracking or popping, but did have pain to the right lower leg following this. She does not recall any other pain. Her was with her and tried to help brace her fall. Patient will be admitted for pain control, orthopaedics evaluation, PT/OT consultation for ambulatory function and rehab e valuation. COVID test on admission is: PENDING Principal Diagnosis 1. Proximal tibia fracture 2. Morbid obesity 3. vitamin D deficiency Discharge Exam General: Resting comfortably in her Hospital bed. Does not appear ill or toxic HEENT: Head is AT/NC. Buccal mucosa is moist and pink Neck: Neck girth large and difficult to assess given her habitus Cardiac: Distant heart soundslikely due to habitus Lungs: Diminishedlikely due to habitus. No wheezes, rales or rhonchi Abdomen: Morbidly obese and difficult to assess. Normoactive X4. Soft and nontender Extremities: + Adiposity with lymphedema. Right lower extremity and an Donald wrap and an attempted splint. Dorsalis pedis pulses intact and symmetrical bilaterally. Capillary refill +2. Neuro: A&O X4. Cranial nerves II through XII are grossly intact. No focal neuro deficits Skin: No obvious skin lesions or rashes Psych: Appropriate affect. Pleasant and cooperative Discharge Data Allergies Allergy/AdvReac Type Severity Reaction Status Date / Time No Known Allergies Allergy Unknown Verified 04/12/19 15:26 Consultations 07/24/21 12:09 ED Decision to Admit Stat 07/24/21 17:04 Consult Orthopedic Surgery Routine Assessment & Plan (1) Tibial fracture: She has a comminuted and moderately displaced right proximal tibial shaft fracture in the setting of gross morbid obesity with a BMI of 75. This was an atraumatic fracture, likely related to her weight and relative osteoporosis. I advised her that with her morbid obesity, she is at much higher risk for complication with any surgical treatment of this fracture. She may be better served at a tertiary care facility due to her potential for postoperative complications. However, she is a previous patient of Dr. Clay's, and she is hoping that he would agree to do her surgery. We will await his input. We did briefly discussed nonoperative treatment, but I am not sure this would be recommended. It would be very difficult to immobilize her fracture due to her massive soft tissue envelope, and I think she would be at high risk for increased displacement even during transfers. Nonweightbearing for now on that right leg. 07/25: Patient is seen by Dr. Clay today. They discussed her treatment plan. Multiple concerns with surgery including her large soft tissue envelope, chronic venous stasis, and her morbid obesity. Obed feels that the patient would be a candidate for a suprapatellar IM tibial nailing to help decrease the size of the incision that would need to be made, thus decreasing the possibility of wound infection with a larger incision if a plate and screw device were to be used. Patient is in agreement for transfer to a tertiary care facility either in [place] and or [facility]. I have spoken to Anjelica June PA-C and she will begin working on transfer plans for this patient. 07/26/21 16:13 Burn CD for patient Routine Ordered Studies 07/24/21 09:56 US venous doppler LE RT Stat IMPRESSION: No evidence of deep venous thrombus within the right lower extremity although evaluation of the calf vessels was suboptimal. 07/25/21 12:55 CT tib/fib RT wo con Routine IMPRESSION: 1. Acute, comminuted, mildly displaced and impacted fracture of the proximal tibial metadiaphyseal junction. No fracture extension identified involving the tibial plateaus. 2. Tricompartmental osteoarthritis, severe within the patellofemoral joint. 3. Partially imaged joint effusion of the knee with subcentimeter intra- articular loose bodies, likely degenerative related. 4. Chronic soft tissue calcifications with diffuse subcutaneous edema Hospital Course (1) Tibial fracture: 61-year-old white female who is morbidly obese presented with right lower extremity pain and found to have a proximal displaced tibia fracture. No trauma or fall preceded the pain. -X-ray showed proximal tibia fracture -CT showed acute comminuted mildly displaced and impacted fracture of the proximal tibia at the metadiaphyseal junction -Venous Doppler showed no evidence of DVT -Hospitalized for pain control with nonweightbearing status. Attempted splint to the right lower extremity; however, unsuccessful given her habitus -Seen by orthopedics who recommends surgical intervention for stabilization. Has since been seen by Dr. Healy and Dr. Clay who both feel that patient needs transfer to a tertiary center for a suprapatella IM nailing which cannot be done here -Unfortunately, patient holds a high mortality rate with surgical intervention given her habitus given her BMI of 74.4; however, her mortality rate is also significantly high without surgical intervention (DVTs/PEs, bedsores, infections, sepsis and ) -Patient has been on Lovenox for DVT prophylaxis. would continue this -Spoke to [facility] (Dr. Apple-hospitalist and Dr. Doedic surgeon). patient has been accepted and will be transferred once bed becomes available. Patient currently medically and hemodynamically stable (2) Obesity: - Morbid obesity with BMI of 74.4 (3) Sleep apnea: - Likely related to her size. Continue CPAP. (4) Depression: - Continue Cymbalta (5) Hypertension: -Continue diltiazem and lisinopril (6) Asthma: Continue Advair and Singulair (7) Anemia: Chronic. Baseline hemoglobin between 10-11. Hemoglobin currently at baseline at 10.8 - Documented history of B12 deficiency Patient to be transferred to [facility] for suprapatellar IM nailing that unfortunately cannot be performed here at our facility. Given her habitus, surgical intervention is definitely a risk; however, her mortality rate without surgical intervention is significantly high. Patient is agreeable and will be transferred when bed becomes available. Case discussed with Dr. Bailey who agrees. Total Time Total Time Spent Total Time Spent (In Minutes): 90 minutes including time spent with patient, discussion with multiple facilities and multiple providers, discussion with case management, preparation of documentation and coordination of care Discharge Plan Discharge Items Patient Disposition: Transfer [facility] Reason For Visit: TIB FRACTURE - MORBIDLY OBEASE Discharge Diagnosis: 1. Proximal tibia fracture 2. Anemiachronic and baseline 3. Morbid obesity 4. Vitamin D deficiency Activity: As commented below Activity Comment: NWB to RLE until told otherwise by Ortho Non-emergency contact: Primary Care Provider and Surgeon Call non-emergency contact if: you have any medication questions Follow-up/Referrals: Toni Gonzalez MD [Primary Care Provider] - Diet: Heart Healthy Addtl Attending Provider Instructions: You presented to the hospital with right leg pain and were found to have a proximal tibia fracture Unfortunately, given the nature of the fracture, you need a type of repair that cannot be done here. Given your underlying morbid obesity, surgery is a significant risk but so is not repairing this fracture and being bedbound. The risk of surgery and stabilization the fracture greater outweighs the risk of not. Without repair, you will be bedbound and this can lead to bedsores, blood clots and this can be fatal. You were seen by orthopedics while in the hospital and they are recommending a suprapatellar IM nailing to stabilize this fracture. This cannot be done here at our facility and requires transfer to a tertiary center. Pending Studies at Discharge: No Stand-Alone Forms: My [facility] Skilled Items Patient informed of condition?: Yes DNR: No Discharge Level of Care: Other Communicable Disease: No Discharge Prognosis: Stable Lines: Peripheral IV Urinary Catheter: No Medications and DC Order Prescriptions: New enoxaparin [Lovenox] 40 mg/0.4 mL Syringe 40 mg subcut Q12H Qty: 14 RF: 0 Continued montelukast [Singulair] 10 mg tablet 10 mg PO QPM Qty: 30 RF: 5 duloxetine [Cymbalta] 60 mg capsule,delayed release(DR/EC) 60 mg PO DAILY RF: 0 albuterol sulfate [ProAir HFA] 90 mcg/actuation HFA aerosol inhaler 2 puffs INH Q6H PRN (Reason: Other) RF: 0 diltiazem HCl 120 mg capsule,extended release 12 hr 360 mg PO DAILY RF: 0 lisinopril 10 mg tablet 10 mg PO DAILY RF: 0 fluticasone propion-salmeterol [Wixela Inhub] 250-50 mcg/dose blister with device 1 puffs INH Q12H Qty: 60 RF: 5 (DME) CPAP Supplies Misc See Rx Instructions .ROUTE .MEDSUPPLY Qty: 1 RF: 0 ropinirole 0.5 mg tablet 1 mg PO HS RF: 0 omeprazole 20 mg capsule,delayed release(DR/EC) 20 mg PO BID RF: 0 diclofenac sodium 75 mg tablet,delayed release (DR/EC) 75 mg PO TID PRN (Reason: other) RF: 0 oxybutynin chloride 10 mg tablet extended release 24 hr 10 mg PO DAILY RF: 0 Discharge Orders: Discharge Order (Routine); Ordered 07/26/21 Ordered By: Rachna June Admission Data Admit Date/Time: 07/24/21 12:42 Attending Provider: Kristopher Bailey Admit Provider: Diego Rodríguez Primary Care Provider: Toni Gonzalez Other Providers: Diego Rodríguez ; Christo Clay Coding Level of Care Code D/C DAY MANAGEMENT >30 MINS Diagnoses Tibial fracture S82.101A Encounter type: initial encounter Fracture morphology: unspecified fracture morphology Fracture type: closed Laterality: right Tibia location: proximal Obesity E66.9 Sleep apnea G47.30 Depression F32.9 Hypertension I10 Asthma J45.909 Anemia D64.9
--- NOTE | 2021-07-26 17:56 | XCELERA ---
[id number]
[2021-07-26] MEDS: oxyCODONE HCL IR 5 MG TAB (IMMEDIATE RELEASE) PO PRN (20:42)
[2021-07-26] MEDS: MONTELUKAST SODIUM 10 MG TABLET PO SCH (20:43)
[2021-07-26] MEDS: rOPINIRole HCL 1 MG TABLET PO SCH (20:44)
[2021-07-26] MEDS: buPROPion SR 150 MG TABCR PO SCH (23:29)
[2021-07-27] MEDS: DULoxetine HCL 60 MG CAP PO SCH (07:40)
[2021-07-27] MEDS: OXYBUTYNIN CHLORIDE XL 5 MG TABCR PO SCH (07:40)
[2021-07-27] MEDS: buPROPion SR 150 MG TABCR PO SCH (07:40)
[2021-07-27] MEDS: CYANOCOBALAMIN 1000 MCG/ML VIAL IM SCH (07:40)
[2021-07-27] MEDS: MICONAZOLE NITRATE POWDER 43 GM EXT SCH (07:41)
[2021-07-27] MEDS: PANTOprazole 40 MG TAB PO SCH (07:41)
[2021-07-27] MEDS: lisinopril 10 MG TAB PO SCH (07:41)
[2021-07-27] MEDS: ENOXAPARIN INJ 40 MG/0.4 ML SYR SQ SCH (07:42)
[2021-07-27] MEDS: FLUTICASONE/VILANTEROL 200/25MCG 14 PUFFS/INHALER INH SCH (07:42)
[2021-07-27] MEDS: LIDOCAINE 5% 1 PATCH TD SCH (07:45)
[2021-07-27 08:30] LABS: Basophils # (auto) 0.02 K/uL (0-0.2); Basophils % (auto) 0.3 %; Eosinophils # (auto) 0.22 K/uL (0-0.5); Eosinophils % (auto) 3.7 %; Hematocrit (blood only) 33.3 % (37-47); Hemoglobin 10.3 g/dL (12.0-16.0); Immature Granulocytes # (auto) 0.03 K/uL (0.00-0.02); Immature Granulocytes % (auto) 0.5 %; Lymphocytes # (auto) 1.13 K/uL (1.2-3.4); Lymphocytes % (auto) 19.1 %; Mean Corpuscular Hemoglobin 27.8 pg (25-34); Mean Corpuscular Hgb Conc 30.9 g/dL (32-36); Mean Corpuscular Volume 89.8 fL (80-100); Mean Platelet Volume 9.9 fL (7.4-10.4); Monocytes # (auto) 0.42 K/uL (0.11-0.59); Monocytes % (auto) 7.1 %; Neutrophils # (auto) 4.09 K/uL (1.4-6.5); Neutrophils % (auto) 69.3 %; Platelet Count 192 K/uL (130-400); RDW Standard Deviation 48.9 fL (36.4-46.3); Red Blood Count 3.71 M/uL (4.2-5.4); White Blood Count 5.91 K/uL (4.8-10.8)
[2021-07-27 08:37] LABS: Calcium 8.8 mg/dl (8.5-10.1); Creatinine Clr Calc Pharmacy 116.7 ml/min; Est GFR (African American) 75.4 ml/min; Magnesium 2.1 mg/dl (1.7-2.4); Potassium 4.1 mmol/L (3.5-5.1)
--- NOTE | 2021-07-27 11:33 | Hospitalist Progress Note ---
Date of Service July 26, 2021 Assessment & Plan (1) Tibial fracture: Plan: 61-year-old white female who is morbidly obese presented with right lower extremity pain and found to have a proximal displaced tibia fracture. No trauma or fall preceded the pain. -X-ray showed proximal tibia fracture -CT showed acute comminuted mildly displaced and impacted fracture of the proximal tibia at the metadiaphyseal junction -Venous Doppler showed no evidence of DVT -Hospitalized for pain control with nonweightbearing status. Attempted splint to the right lower extremity; however, unsuccessful given her habitus -Seen by orthopedics who recommends surgical intervention for stabilization. Has since been seen by Dr. Healy and Dr. Clay who both feel that patient needs transfer to a tertiary center for a suprapatella IM nailing which cannot be done here -Unfortunately, patient holds a high mortality rate with surgical intervention given her habitus given her BMI of 74.4; however, her mortality rate is also significantly high without surgical intervention (DVTs/PEs, bedsores, infections, sepsis and ) -Patient has been on Lovenox for DVT prophylaxis. would continue this -Spoke to [facility] (Dr. Apple-hospitalist and Dr. Doedic surgeon). patient has been accepted and will be transferred once bed becomes available. Patient currently medically and hemodynamically stable (2) Obesity: Plan: - Morbid obesity with BMI of 74.4 (3) Sleep apnea: Plan: - Likely related to her size. Continue CPAP. (4) Depression: Plan: - Continue Cymbalta (5) Hypertension: Plan: -Continue diltiazem and lisinopril (6) Asthma: Plan: Continue Advair and Singulair (7) Anemia: Plan: Chronic. Baseline hemoglobin between 10-11. Hemoglobin currently at baseline at 10.8 - Documented history of B12 deficiency Plan: Patient to be transferred to [facility] for suprapatellar IM nailing that unfortunately cannot be performed here at our facility. Given her habitus, surgical intervention is definitely a risk; however, her mortality rate without surgical intervention is significantly high. Patient is agreeable and will be transferred when bed becomes available. Case discussed with Dr. Bailey who agrees. Admission and Anticipated Discharge Date Admission Date: July 24, 2021 Subjective Patient seen on daily rounds today. Vocalizes no complaints or concerns. Has since been seen by our orthopedic group and given her habitus and need for a suprapatellar IM nailing (which cannot be done here), they are recommending transfer to a tertiary center. Arrangements were made and patient accepted to [facility]; however, no transportation available until 07/27 Pain adequately controlled. Denies fevers, chills, chest pain, shortness of breath, abdominal pain, nausea or vomiting Review of Systems Review of Systems: All systems reviewed and are unremarkable except as noted in HPI and below Denies fevers, chills, headache, nasal congestion, sore throat, cough, chest pain, shortness of breath, palpitations, orthopnea, PND, abdominal pain, nausea, vomiting, diarrhea, constipation, dysuria, hematuria, frequency, back pain, e asy bruising or bleeding, skin lesions or rashes. Physical Exam Physical Exam: General: Resting comfortably in her Hospital bed. Does not appear ill or toxic HEENT: Head is AT/NC. Buccal mucosa is moist and pink Neck: Neck girth large and difficult to assess given her habitus Cardiac: Distant heart soundslikely due to habitus Lungs: Diminishedlikely due to habitus. No wheezes, rales or rhonchi Abdomen: Morbidly obese and difficult to assess. Normoactive X4. Soft and nontender Extremities: + Adiposity with lymphedema. Right lower extremity and an Donald wrap and an attempted splint. Dorsalis pedis pulses intact and symmetrical bilaterally. Capillary refill +2. Neuro: A&O X4. Cranial nerves II through XII are grossly intact. No focal neuro deficits Skin: No obvious skin lesions or rashes Psych: Appropriate affect. Pleasant and cooperative Results & Data Results & Data ([facility]) Vital Signs (Past 12 Hours) Vital Signs Temp Pulse Resp BP Pulse Ox 07/27/21 06:58 36.9 C 68 18 164/84 H 95 PG Care Time/CCT Total # of Minutes Spent Total Time Spent with Patient: Total time spent is greater than 50% in coordination of care (as documented) at patient's floor/unit and/or counseling patient: Coding Level of Care Code 58976 Subseq Hosp Care Lvl 2 Diagnoses Tibial fracture S82.101A Encounter type: initial encounter Fracture morphology: unspecified fracture morphology Fracture type: closed Laterality: right Tibia location: proximal Obesity E66.9 Sleep apnea G47.30 Depression F32.9 Hypertension I10 Asthma J45.909 Anemia D64.9 (1) Tibial fracture Encounter type: initial encounter Fracture morphology: unspecified fracture morphology Fracture type: closed Laterality: right Tibia location: proximal Qualified Code(s): S82.101A - Unspecified fracture of upper end of right tibia, initial encounter for closed fracture
[2021-07-27] MEDS: oxyCODONE HCL IR 5 MG TAB (IMMEDIATE RELEASE) PO PRN (11:41)
[2021-07-27] MEDS: ACETAMINOPHEN 325 MG TAB PO PRN (11:41)
== END 2021-07-27 12:59 | disposition short-term general hospital (02) ==
LOC: ED 09:36 → INTOOBSV 12:42 → 3N 12:42 → SUATTDRO 12:42 → 3N 16:34